=== PATIENT | male | born 1980 | race Hispanic/Latino ===

== ENCOUNTER 2021-03-24 22:06 | Inpatient (IN) | payer SELFPAY ==
[~2021-03-24] VITALS: Ht 165.1 cm; Wt 104.9 kg
[2021-03-24] MEDS ORDERED: DEXAMETHASONE SOD PHOS 10 MG/1 ML VIAL IV ONE (22:30)
[2021-03-24] MEDS ORDERED: ALBUTEROL/IPRATROPIUM 3 ML NEB NEB ONE (22:30)
[2021-03-24 22:33] LABS: BASOPHILS % 0.3 % (0.0-1.0); HEMATOCRIT 43.1 % (38.2-49.6); HEMOGLOBIN 14.6 g/dL (14.0-18.0); LYMPHOCYTES # (AUTO) 1.5 (1.0-3.2); MEAN CORPUSCULAR HEMOGLOBIN 28.5 pg (28-32); MEAN CORPUSCULAR HGB CONC 33.9 g/dL (31-35); MEAN CORPUSCULAR VOLUME 84.2 fL (81-99); MONOCYTES # (AUTO) 0.6 (0.2-0.8); MONOCYTES % 5.9 % (4.4-11.3); NEUTROPHILS # (AUTO) 8.2 (2.1-6.9); NEUTROPHILS % 78.2 % (38.7-80.0); PLATELET COUNT 392 x10e3/uL (140-360); RED BLOOD COUNT 5.12 x10e6/uL (4.3-5.7); RED CELL DISTRIBUTION WIDTH 13.3 % (11.7-14.4)
[2021-03-24] MEDS ORDERED: IPRATROPIUM BROMIDE 0.02% 2.5 ML NEB ONE (22:35)
[2021-03-24] MEDS ORDERED: ALBUTEROL SULF 0.083% NEB SOLN 3 ML NEB ONE (22:35)
[2021-03-24] MEDS ORDERED: KETOROLAC TROMETHAMINE 30 MG/ML VIAL IV STA (22:37)
[2021-03-24] MEDS ORDERED: GUAIFENESIN 600MG/DEXTROMETHORPHAN 30MG TABSR PO STA (22:37)
[2021-03-24] MEDS ORDERED: ACETAMINOPHEN 325 MG TAB PO ONE (22:45)
[2021-03-24 22:52] LABS: ALBUMIN 2.6 g/dL (3.5-5.0); ALBUMIN/GLOBULIN RATIO 0.5 (0.8-2.0); CALCIUM 8.3 mg/dL (8.4-10.2); CREATININE, SERUM 1.14 mg/dL (0.72-1.25)
[2021-03-24] MEDS ORDERED: IOPAMIDOL 370 MG/ML 200 ML INFUS..BTL INJ ONE (23:42)
[2021-03-24] MEDS ORDERED: SODIUM CHLORIDE 0.9% 50ML 50 ML ONE (23:43)
[2021-03-25] MEDS ORDERED: ONDANSETRON HCL INJ 2MG/ML 2ML 2 MG/ML VIAL IV PRN (00:30)
[2021-03-25] MEDS ORDERED: MORPHINE SULFATE INJ 4 MG/ML INJ 1ML IV PRN (00:30)
[2021-03-25] MEDS ORDERED: ZOLPIDEM TARTRATE 5 MG TAB PO PRN (08:00)
[2021-03-25] MEDS ORDERED: SODIUM CHLORIDE 0.9% 1000ML 1,000 ML IV ONE (08:15)
[2021-03-25] MEDS ORDERED: REMDESIVIR 200MG 200 MG IV ONE (09:00)
[2021-03-25] MEDS: ENOXAPARIN SOD INJ 40 MG/0.4 ML SYR SC SCH ×2 (10:12→23:00)
[2021-03-25] MEDS: ASCORBIC ACID 500 MG TAB PO SCH ×2 (10:12→17:00)
[2021-03-25] MEDS: ZINC SULFATE 220 MG CAP PO SCH (10:12)
[2021-03-25] MEDS ORDERED: SODIUM BICARBONATE 8.4% INJ 50 ML SYR ONE (12:42)
[2021-03-25] MEDS: CEFTRIAXONE 1 GM in SODIUM CHLORIDE 0.9% 50ML 50 ML IV SCH (13:38)
[2021-03-25] MEDS: DEXAMETHASONE SOD PHOS 10 MG/1 ML VIAL IV SCH (23:00)
[2021-03-26 06:18] LABS: BASOPHILS % 0.2 % (0.0-1.0); HEMATOCRIT 40.6 % (38.2-49.6); HEMOGLOBIN 13.7 g/dL (14.0-18.0); LYMPHOCYTES # (AUTO) 1.2 (1.0-3.2); LYMPHOCYTES % 7.3 % (18.0-39.1); MEAN CORPUSCULAR HEMOGLOBIN 28.5 pg (28-32); MEAN CORPUSCULAR HGB CONC 33.7 g/dL (31-35); MEAN CORPUSCULAR VOLUME 84.6 fL (81-99); MONOCYTES # (AUTO) 1.3 (0.2-0.8); MONOCYTES % 7.7 % (4.4-11.3); NEUTROPHILS # (AUTO) 14.2 (2.1-6.9); NEUTROPHILS % 83.3 % (38.7-80.0); PLATELET COUNT 443 x10e3/uL (140-360); RED CELL DISTRIBUTION WIDTH 13.3 % (11.7-14.4)
[2021-03-26 06:49] LABS: ALBUMIN 2.4 g/dL (3.5-5.0); ALBUMIN/GLOBULIN RATIO 0.5 (0.8-2.0); ANION GAP 12.2 mmol/L (8-16); CALCIUM 8.3 mg/dL (8.4-10.2); CREATININE, SERUM 0.74 mg/dL (0.72-1.25); POTASSIUM 4.2 mmol/L (3.5-5.1)
[2021-03-26] MEDS: ASCORBIC ACID 500 MG TAB PO SCH ×2 (09:00→17:51)
[2021-03-26] MEDS: ZINC SULFATE 220 MG CAP PO SCH (09:00)
[2021-03-26] MEDS: ENOXAPARIN SOD INJ 40 MG/0.4 ML SYR SC SCH ×2 (09:04→21:45)
[2021-03-26] MEDS: REMDESIVIR 100MG 100 MG IV SCH (09:04)
[2021-03-26] MEDS: CEFTRIAXONE 1 GM in SODIUM CHLORIDE 0.9% 50ML 50 ML IV SCH (09:04)
[2021-03-26] MEDS: DEXAMETHASONE SOD PHOS 10 MG/1 ML VIAL IV SCH (21:45)
[2021-03-26] MEDS ORDERED: ACETAMINOPHEN 1000 MG/100 ML IV PRN (23:45)
[2021-03-27] MEDS ORDERED: ACETAMINOPHEN 1000 MG/100 ML IV SCH
[2021-03-27 05:14] LABS: BASOPHILS % 0.1 % (0.0-1.0); HEMATOCRIT 41.4 % (38.2-49.6); HEMOGLOBIN 13.7 g/dL (14.0-18.0); LYMPHOCYTES % 7.2 % (18.0-39.1); MEAN CORPUSCULAR HEMOGLOBIN 28.1 pg (28-32); MEAN CORPUSCULAR HGB CONC 33.1 g/dL (31-35); MEAN CORPUSCULAR VOLUME 84.8 fL (81-99); MONOCYTES # (AUTO) 1.1 (0.2-0.8); MONOCYTES % 8.1 % (4.4-11.3); NEUTROPHILS # (AUTO) 11.5 (2.1-6.9); NEUTROPHILS % 82.9 % (38.7-80.0); PLATELET COUNT 474 x10e3/uL (140-360); RED BLOOD COUNT 4.88 x10e6/uL (4.3-5.7); RED CELL DISTRIBUTION WIDTH 13.2 % (11.7-14.4)
[2021-03-27 05:35] LABS: ALBUMIN 2.4 g/dL (3.5-5.0); ALBUMIN/GLOBULIN RATIO 0.5 (0.8-2.0); ANION GAP 15.5 mmol/L (8-16); CALCIUM 8.1 mg/dL (8.4-10.2); CREATININE, SERUM 0.72 mg/dL (0.72-1.25); POTASSIUM 4.5 mmol/L (3.5-5.1)
[2021-03-27] MEDS: CEFTRIAXONE 1 GM in SODIUM CHLORIDE 0.9% 50ML 50 ML IV SCH (09:01)
[2021-03-27] MEDS: ZINC SULFATE 220 MG CAP PO SCH (09:01)
[2021-03-27] MEDS: ENOXAPARIN SOD INJ 40 MG/0.4 ML SYR SC SCH ×2 (09:01→23:00)
[2021-03-27] MEDS: ASCORBIC ACID 500 MG TAB PO SCH ×2 (09:01→17:10)
[2021-03-27] MEDS: REMDESIVIR 100MG 100 MG IV SCH (09:36)
[2021-03-27] MEDS: DEXAMETHASONE SOD PHOS 10 MG/1 ML VIAL IV SCH (23:00)
[2021-03-28 06:12] LABS: BASOPHILS % 0.2 % (0.0-1.0); HEMATOCRIT 42.2 % (38.2-49.6); HEMOGLOBIN 14.4 g/dL (14.0-18.0); LYMPHOCYTES % 5.8 % (18.0-39.1); MEAN CORPUSCULAR HEMOGLOBIN 28.6 pg (28-32); MEAN CORPUSCULAR HGB CONC 34.1 g/dL (31-35); MEAN CORPUSCULAR VOLUME 83.9 fL (81-99); MONOCYTES # (AUTO) 0.8 (0.2-0.8); MONOCYTES % 4.9 % (4.4-11.3); NEUTROPHILS # (AUTO) 14.7 (2.1-6.9); NEUTROPHILS % 86.4 % (38.7-80.0); PLATELET COUNT 380 x10e3/uL (140-360); RED BLOOD COUNT 5.03 x10e6/uL (4.3-5.7); RED CELL DISTRIBUTION WIDTH 13.1 % (11.7-14.4)
[2021-03-28 06:16] LABS: ANION GAP 13.6 mmol/L (8-16); CALCIUM 8.4 mg/dL (8.4-10.2); CREATININE, SERUM 0.75 mg/dL (0.72-1.25); POTASSIUM 4.6 mmol/L (3.5-5.1)
[2021-03-28] MEDS: ENOXAPARIN SOD INJ 40 MG/0.4 ML SYR SC SCH ×2 (09:42→20:27)
[2021-03-28] MEDS: CEFTRIAXONE 1 GM in SODIUM CHLORIDE 0.9% 50ML 50 ML IV SCH (09:42)
[2021-03-28] MEDS: ASCORBIC ACID 500 MG TAB PO SCH ×2 (09:42→15:10)
[2021-03-28] MEDS: ZINC SULFATE 220 MG CAP PO SCH (09:42)
[2021-03-28] MEDS: REMDESIVIR 100MG 100 MG IV SCH (09:42)
[2021-03-28] MEDS: DEXAMETHASONE SOD PHOS 10 MG/1 ML VIAL IV SCH (20:27)
[2021-03-28] MEDS: ACETAMINOPHEN 325 MG TAB PO PRN (22:23)
[2021-03-29 06:07] LABS: BASOPHILS % 0.2 % (0.0-1.0); HEMATOCRIT 42.6 % (38.2-49.6); HEMOGLOBIN 14.4 g/dL (14.0-18.0); LYMPHOCYTES # (AUTO) 1.1 (1.0-3.2); LYMPHOCYTES % 5.5 % (18.0-39.1); MEAN CORPUSCULAR HEMOGLOBIN 28.5 pg (28-32); MEAN CORPUSCULAR HGB CONC 33.8 g/dL (31-35); MEAN CORPUSCULAR VOLUME 84.2 fL (81-99); MONOCYTES # (AUTO) 1.1 (0.2-0.8); MONOCYTES % 5.2 % (4.4-11.3); NEUTROPHILS # (AUTO) 17.5 (2.1-6.9); NEUTROPHILS % 86.2 % (38.7-80.0); PLATELET COUNT 469 x10e3/uL (140-360); RED BLOOD COUNT 5.06 x10e6/uL (4.3-5.7); RED CELL DISTRIBUTION WIDTH 13.2 % (11.7-14.4)
[2021-03-29 06:34] LABS: ALBUMIN 2.3 g/dL (3.5-5.0); ALBUMIN/GLOBULIN RATIO 0.5 (0.8-2.0); ANION GAP 12.7 mmol/L (8-16); CALCIUM 8.6 mg/dL (8.4-10.2); CREATININE, SERUM 0.73 mg/dL (0.72-1.25); POTASSIUM 4.7 mmol/L (3.5-5.1)
[2021-03-29] MEDS: ZINC SULFATE 220 MG CAP PO SCH (10:15)
[2021-03-29] MEDS: REMDESIVIR 100MG 100 MG IV SCH (10:15)
[2021-03-29] MEDS: CEFTRIAXONE 1 GM in SODIUM CHLORIDE 0.9% 50ML 50 ML IV SCH (10:15)
[2021-03-29] MEDS: ASCORBIC ACID 500 MG TAB PO SCH ×2 (10:15→18:15)
[2021-03-29] MEDS: ENOXAPARIN SOD INJ 40 MG/0.4 ML SYR SC SCH ×2 (10:15→23:30)
[2021-03-29] MEDS: DEXAMETHASONE SOD PHOS 10 MG/1 ML VIAL IV SCH (23:30)
[2021-03-30] MEDS: ACETAMINOPHEN 325 MG TAB PO PRN (00:54)
[2021-03-30] MEDS ORDERED: ACETAMINOPHEN 1000 MG/100 ML IV PRN (06:45)
[2021-03-30 07:18] LABS: BASOPHILS # (AUTO) 0.1 (0.0-0.1); BASOPHILS % 0.2 % (0.0-1.0); EOSINOPHILS # (AUTO) 0.2 (0.0-0.4); EOSINOPHILS % 0.9 % (0.0-6.0); HEMATOCRIT 45.2 % (38.2-49.6); HEMOGLOBIN 15.3 g/dL (14.0-18.0); LYMPHOCYTES # (AUTO) 1.6 (1.0-3.2); MEAN CORPUSCULAR HEMOGLOBIN 28.5 pg (28-32); MEAN CORPUSCULAR HGB CONC 33.8 g/dL (31-35); MEAN CORPUSCULAR VOLUME 84.3 fL (81-99); MONOCYTES # (AUTO) 1.4 (0.2-0.8); MONOCYTES % 6.7 % (4.4-11.3); NEUTROPHILS # (AUTO) 16.3 (2.1-6.9); NEUTROPHILS % 80.6 % (38.7-80.0); PLATELET COUNT 371 x10e3/uL (140-360); RED BLOOD COUNT 5.36 x10e6/uL (4.3-5.7); RED CELL DISTRIBUTION WIDTH 13.2 % (11.7-14.4)
[2021-03-30] MEDS: ASCORBIC ACID 500 MG TAB PO SCH ×2 (08:12→08:13)
[2021-03-30] MEDS: ZINC SULFATE 220 MG CAP PO SCH (08:13)
[2021-03-30] MEDS: ENOXAPARIN SOD INJ 40 MG/0.4 ML SYR SC SCH ×2 (08:39→22:35)
[2021-03-30] MEDS: DEXAMETHASONE SOD PHOS 10 MG/1 ML VIAL IV SCH (08:39)
[2021-03-30] MEDS: FENTANYL 2000MCG/NS 250 250 ML IV SCH (09:12)
[2021-03-30] MEDS: MIDAZOLAM HCL 5MG/ML 10ML VIAL 100 ML IV SCH ×3 (09:13→23:00)
[2021-03-30] MEDS ORDERED: ROCURONIUM BROMIDE 1,250 MG in SODIUM CHLORIDE 0.9% 250ML 125 ML IV PRN (10:45)
[2021-03-30] MEDS ORDERED: ROCURONIUM 1250MG/NS 250 250 ML ONE (11:02)
[2021-03-30 11:59] LABS: ABG HCO3 29 mmol/L (22-26); ABG PCO2 64 mmHg (35-45); ABG PH 7.27 (7.35-7.45); ABG PO2 117 mmHg (80-105); ABG TCO2 31
[2021-03-30] MEDS: PIPERACILLIN/TAZOBACTAM 3.375 GM in SODIUM CHLORIDE 0.9% 50ML 50 ML IV SCH ×2 (13:19→17:17)
[2021-03-30] MEDS ORDERED: SUCCINYLCHOLINE CHLORIDE 20 MG/ML 10ML VIAL ONE (13:42)
[2021-03-30] MEDS ORDERED: WATER STERILE 10 ML VIAL ONE (13:42)
[2021-03-30] MEDS ORDERED: MIDAZOLAM HCL 2 MG/2 ML VIAL ONE (13:42)
[2021-03-30] MEDS ORDERED: ETOMIDATE 2 MG/ML 10 ML INJ IV ONE (13:42)
[2021-03-30] MEDS ORDERED: VECURONIUM BROMIDE FOR INJ 20 MG VIAL ONE (13:42)
[2021-03-30] MEDS ORDERED: SODIUM CHLORIDE 0.9% 500ML 500 ML ONE (14:56)
[2021-03-30] MEDS ORDERED: SODIUM CHLORIDE 0.9% 500 ML IV ONE (15:30)
[2021-03-30] MEDS: NOREPINEPHRINE 8 MG/D5W 250 ML 250 ML IV SCH (15:45)
[2021-03-31] VITALS (18 sets, daily range): BP systolic 93–126; BP diastolic 57–82
[2021-03-31] MEDS: FENTANYL 2000MCG/NS 250 250 ML IV SCH ×3 (01:08→23:35)
[2021-03-31] MEDS: PIPERACILLIN/TAZOBACTAM 3.375 GM in SODIUM CHLORIDE 0.9% 50ML 50 ML IV SCH ×5 (01:30→23:35)
[2021-03-31] MEDS ORDERED: ACETAMINOPHEN 1000 MG/100 ML 100 ML IV ONE (01:33)
[2021-03-31 06:37] LABS: BASOPHILS # (AUTO) 0.1 (0.0-0.1); BASOPHILS % 0.3 % (0.0-1.0); HEMATOCRIT 43.3 % (38.2-49.6); LYMPHOCYTES # (AUTO) 1.1 (1.0-3.2); LYMPHOCYTES % 6.2 % (18.0-39.1); MEAN CORPUSCULAR HEMOGLOBIN 28.3 pg (28-32); MEAN CORPUSCULAR HGB CONC 32.3 g/dL (31-35); MEAN CORPUSCULAR VOLUME 87.5 fL (81-99); MONOCYTES # (AUTO) 1.4 (0.2-0.8); MONOCYTES % 7.7 % (4.4-11.3); NEUTROPHILS # (AUTO) 14.6 (2.1-6.9); NEUTROPHILS % 83.1 % (38.7-80.0); PLATELET COUNT 402 x10e3/uL (140-360); RED BLOOD COUNT 4.95 x10e6/uL (4.3-5.7); RED CELL DISTRIBUTION WIDTH 13.7 % (11.7-14.4)
[2021-03-31 07:02] LABS: ALBUMIN 2.1 g/dL (3.5-5.0); ALBUMIN/GLOBULIN RATIO 0.4 (0.8-2.0); ANION GAP 17.8 mmol/L (8-16); CALCIUM 8.5 mg/dL (8.4-10.2); CREATININE, SERUM 0.87 mg/dL (0.72-1.25); POTASSIUM 4.8 mmol/L (3.5-5.1)
[2021-03-31] MEDS: ACETAMINOPHEN 325 MG TAB PO PRN (07:31)
[2021-03-31] MEDS: ZINC SULFATE 220 MG CAP PO SCH (08:46)
[2021-03-31] MEDS: ENOXAPARIN SOD INJ 40 MG/0.4 ML SYR SC SCH ×2 (08:46→20:36)
[2021-03-31] MEDS: ASCORBIC ACID 500 MG TAB PO SCH ×2 (08:46→17:01)
[2021-03-31 09:33] LABS: ABG PCO2 53 mmHg (35-45); ABG PH 7.35 (7.35-7.45); ABG PO2 88 mmHg (80-105)
[2021-03-31 09:34] LABS: ABG HCO3 29 mmol/L (22-26); ABG TCO2 30
[2021-03-31] MEDS: NOREPINEPHRINE 8 MG/D5W 250 ML 250 ML IV SCH (16:44)
[2021-03-31] MEDS: MIDAZOLAM HCL 5MG/ML 10ML VIAL 100 ML IV SCH ×2 (16:45→20:35)
[2021-03-31] MEDS: DEXAMETHASONE SOD PHOS 10 MG/1 ML VIAL IV SCH (22:16)
[2021-04-01] VITALS (26 sets, daily range): BP systolic 88–128; BP diastolic 47–68
[2021-04-01] MEDS: MIDAZOLAM HCL 5MG/ML 10ML VIAL 100 ML IV SCH ×5 (02:12→22:00)
[2021-04-01] MEDS ORDERED: HEPARIN SOD/SOD CHLORIDE 1,000 ML ONE (02:38)
[2021-04-01] MEDS: PIPERACILLIN/TAZOBACTAM 3.375 GM in SODIUM CHLORIDE 0.9% 50ML 50 ML IV SCH ×4 (06:14→23:22)
[2021-04-01] MEDS: FENTANYL 2000MCG/NS 250 250 ML IV SCH ×3 (06:50→21:04)
[2021-04-01 06:52] LABS: BASOPHILS % 0.2 % (0.0-1.0); HEMATOCRIT 39.6 % (38.2-49.6); HEMOGLOBIN 12.7 g/dL (14.0-18.0); LYMPHOCYTES # (AUTO) 0.7 (1.0-3.2); LYMPHOCYTES % 6.2 % (18.0-39.1); MEAN CORPUSCULAR HEMOGLOBIN 28.3 pg (28-32); MEAN CORPUSCULAR HGB CONC 32.1 g/dL (31-35); MEAN CORPUSCULAR VOLUME 88.4 fL (81-99); MONOCYTES # (AUTO) 0.5 (0.2-0.8); MONOCYTES % 4.7 % (4.4-11.3); NEUTROPHILS # (AUTO) 9.6 (2.1-6.9); NEUTROPHILS % 87.2 % (38.7-80.0); PLATELET COUNT 386 x10e3/uL (140-360); RED BLOOD COUNT 4.48 x10e6/uL (4.3-5.7); RED CELL DISTRIBUTION WIDTH 13.7 % (11.7-14.4)
[2021-04-01 07:16] LABS: ALBUMIN 2.1 g/dL (3.5-5.0); ALBUMIN/GLOBULIN RATIO 0.5 (0.8-2.0); ANION GAP 15.9 mmol/L (8-16); CREATININE, SERUM 0.72 mg/dL (0.72-1.25); POTASSIUM 4.9 mmol/L (3.5-5.1)
[2021-04-01] MEDS: ZINC SULFATE 220 MG CAP PO SCH (08:41)
[2021-04-01] MEDS: ENOXAPARIN SOD INJ 40 MG/0.4 ML SYR SC SCH ×2 (08:41→21:33)
[2021-04-01] MEDS: ASCORBIC ACID 500 MG TAB PO SCH ×2 (08:41→16:08)
[2021-04-01 09:15] LABS: ABG HCO3 29 mmol/L (22-26); ABG PCO2 48 mmHg (35-45); ABG PH 7.38 (7.35-7.45); ABG PO2 87 mmHg (80-105); ABG TCO2 30
[2021-04-01] MEDS: NOREPINEPHRINE 8 MG/D5W 250 ML 250 ML IV SCH (15:45)
[2021-04-01] MEDS: DEXAMETHASONE SOD PHOS 10 MG/1 ML VIAL IV SCH (21:33)
[2021-04-01] MEDS: ACETAMINOPHEN 325 MG TAB PO PRN (23:23)
[2021-04-02] VITALS (27 sets, daily range): BP systolic 96–136; BP diastolic 50–67
[2021-04-02] MEDS: FENTANYL 2000MCG/NS 250 250 ML IV SCH ×2 (03:55→15:50)
[2021-04-02] MEDS: MIDAZOLAM HCL 5MG/ML 10ML VIAL 100 ML IV SCH ×3 (03:55→18:13)
[2021-04-02 05:31] LABS: BASOPHILS % 0.2 % (0.0-1.0); HEMATOCRIT 41.8 % (38.2-49.6); HEMOGLOBIN 13.6 g/dL (14.0-18.0); LYMPHOCYTES # (AUTO) 1.3 (1.0-3.2); LYMPHOCYTES % 10.4 % (18.0-39.1); MEAN CORPUSCULAR HEMOGLOBIN 28.3 pg (28-32); MEAN CORPUSCULAR HGB CONC 32.5 g/dL (31-35); MEAN CORPUSCULAR VOLUME 87.1 fL (81-99); MONOCYTES # (AUTO) 0.6 (0.2-0.8); MONOCYTES % 4.9 % (4.4-11.3); NEUTROPHILS % 82.3 % (38.7-80.0); PLATELET COUNT 428 x10e3/uL (140-360); RED CELL DISTRIBUTION WIDTH 13.5 % (11.7-14.4)
[2021-04-02 05:50] LABS: ALBUMIN 2.3 g/dL (3.5-5.0); ALBUMIN/GLOBULIN RATIO 0.5 (0.8-2.0); ANION GAP 15.1 mmol/L (8-16); CALCIUM 8.3 mg/dL (8.4-10.2); CREATININE, SERUM 0.67 mg/dL (0.72-1.25); POTASSIUM 4.1 mmol/L (3.5-5.1)
[2021-04-02] MEDS: PIPERACILLIN/TAZOBACTAM 3.375 GM in SODIUM CHLORIDE 0.9% 50ML 50 ML IV SCH ×3 (05:59→18:12)
[2021-04-02] MEDS ORDERED: CITRATE OF MAGNESIA 300ML BOTTLE PO ONE (08:45)
[2021-04-02] MEDS: DOCUSATE SODIUM LIQD 100 MG/10 ML UDC NG SCH (09:04)
[2021-04-02] MEDS: ZINC SULFATE 220 MG CAP PO SCH (09:04)
[2021-04-02] MEDS: ASCORBIC ACID 500 MG TAB PO SCH ×2 (09:04→17:46)
[2021-04-02] MEDS: ENOXAPARIN SOD INJ 40 MG/0.4 ML SYR SC SCH ×2 (09:24→21:53)
[2021-04-02 09:53] LABS: ABG HCO3 31 mmol/L (22-26); ABG PCO2 48 mmHg (35-45); ABG PH 7.41 (7.35-7.45); ABG PO2 97 mmHg (80-105); ABG TCO2 32
[2021-04-02] MEDS: ROCURONIUM 1250MG/NS 250 250 ML IV PRN (10:40)
[2021-04-02] MEDS: NOREPINEPHRINE 8 MG/D5W 250 ML 250 ML IV SCH (13:52)
[2021-04-02] MEDS: METOCLOPRAMIDE HCL 10 MG/2ML VIAL IV SCH ×2 (14:10→21:53)
[2021-04-02] MEDS: DEXAMETHASONE SOD PHOS 10 MG/1 ML VIAL IV SCH (21:53)
[2021-04-03] VITALS (27 sets, daily range): BP systolic 90–144; BP diastolic 47–81
[2021-04-03] MEDS: PIPERACILLIN/TAZOBACTAM 3.375 GM in SODIUM CHLORIDE 0.9% 50ML 50 ML IV SCH ×4 (00:19→17:57)
[2021-04-03] MEDS: MIDAZOLAM HCL 5MG/ML 10ML VIAL 100 ML IV SCH ×3 (00:21→17:10)
[2021-04-03] MEDS: FENTANYL 2000MCG/NS 250 250 ML IV SCH ×3 (00:21→20:58)
[2021-04-03 05:37] LABS: BASOPHILS % 0.1 % (0.0-1.0); EOSINOPHILS % 0.1 % (0.0-6.0); HEMATOCRIT 37.8 % (38.2-49.6); HEMOGLOBIN 12.5 g/dL (14.0-18.0); LYMPHOCYTES # (AUTO) 0.7 (1.0-3.2); LYMPHOCYTES % 6.8 % (18.0-39.1); MEAN CORPUSCULAR HEMOGLOBIN 28.7 pg (28-32); MEAN CORPUSCULAR HGB CONC 33.1 g/dL (31-35); MEAN CORPUSCULAR VOLUME 86.9 fL (81-99); MONOCYTES # (AUTO) 0.6 (0.2-0.8); MONOCYTES % 5.2 % (4.4-11.3); NEUTROPHILS # (AUTO) 9.2 (2.1-6.9); PLATELET COUNT 393 x10e3/uL (140-360); RED BLOOD COUNT 4.35 x10e6/uL (4.3-5.7); RED CELL DISTRIBUTION WIDTH 13.2 % (11.7-14.4)
[2021-04-03 06:15] LABS: ALBUMIN 2.1 g/dL (3.5-5.0); ALBUMIN/GLOBULIN RATIO 0.5 (0.8-2.0); ANION GAP 14.4 mmol/L (8-16); CALCIUM 7.7 mg/dL (8.4-10.2); CREATININE, SERUM 0.68 mg/dL (0.72-1.25); POTASSIUM 4.4 mmol/L (3.5-5.1)
[2021-04-03] MEDS: METOCLOPRAMIDE HCL 10 MG/2ML VIAL IV SCH ×3 (06:21→22:19)
[2021-04-03] MEDS: ENOXAPARIN SOD INJ 40 MG/0.4 ML SYR SC SCH ×2 (08:34→22:19)
[2021-04-03] MEDS: DOCUSATE SODIUM LIQD 100 MG/10 ML UDC NG SCH (08:34)
[2021-04-03] MEDS: ZINC SULFATE 220 MG CAP PO SCH (08:34)
[2021-04-03] MEDS: ASCORBIC ACID 500 MG TAB PO SCH ×2 (08:34→17:10)
[2021-04-03 09:06] LABS: ABG PCO2 46 mmHg (35-45); ABG PH 7.43 (7.35-7.45)
[2021-04-03 09:07] LABS: ABG HCO3 31 mmol/L (22-26); ABG PO2 83 mmHg (80-105); ABG TCO2 32
[2021-04-03] MEDS: ROCURONIUM 1250MG/NS 250 250 ML IV PRN (12:46)
[2021-04-03] MEDS: NOREPINEPHRINE 8 MG/D5W 250 ML 250 ML IV SCH (15:45)
[2021-04-03] MEDS: DEXAMETHASONE SOD PHOS 10 MG/1 ML VIAL IV SCH (22:19)
[2021-04-04] VITALS (17 sets, daily range): BP systolic 91–177; BP diastolic 45–97
[2021-04-04] MEDS: MIDAZOLAM HCL 5MG/ML 10ML VIAL 100 ML IV SCH ×5 (00:15→16:15)
[2021-04-04] MEDS: PIPERACILLIN/TAZOBACTAM 3.375 GM in SODIUM CHLORIDE 0.9% 50ML 50 ML IV SCH ×2 (00:15→05:51)
[2021-04-04] MEDS: NOREPINEPHRINE 8 MG/D5W 250 ML 250 ML IV SCH (05:15)
[2021-04-04] MEDS: FENTANYL 2000MCG/NS 250 250 ML IV SCH ×3 (05:15→19:26)
[2021-04-04] MEDS: METOCLOPRAMIDE HCL 10 MG/2ML VIAL IV SCH ×3 (05:51→20:49)
[2021-04-04 05:55] LABS: BASOPHILS % 0.2 % (0.0-1.0); HEMATOCRIT 39.2 % (38.2-49.6); LYMPHOCYTES # (AUTO) 0.8 (1.0-3.2); LYMPHOCYTES % 6.7 % (18.0-39.1); MEAN CORPUSCULAR HEMOGLOBIN 28.3 pg (28-32); MEAN CORPUSCULAR HGB CONC 33.2 g/dL (31-35); MEAN CORPUSCULAR VOLUME 85.2 fL (81-99); MONOCYTES # (AUTO) 0.6 (0.2-0.8); NEUTROPHILS # (AUTO) 10.3 (2.1-6.9); NEUTROPHILS % 84.5 % (38.7-80.0); PLATELET COUNT 446 x10e3/uL (140-360); RED CELL DISTRIBUTION WIDTH 13.1 % (11.7-14.4)
[2021-04-04 06:15] LABS: ALBUMIN 2.2 g/dL (3.5-5.0); ALBUMIN/GLOBULIN RATIO 0.6 (0.8-2.0); ANION GAP 13.3 mmol/L (8-16); CREATININE, SERUM 0.66 mg/dL (0.72-1.25); POTASSIUM 4.3 mmol/L (3.5-5.1)
[2021-04-04 09:03] LABS: ABG HCO3 30 mmol/L (22-26); ABG PCO2 44 mmHg (35-45); ABG PH 7.44 (7.35-7.45); ABG PO2 179 mmHg (80-105); ABG TCO2 31
[2021-04-04] MEDS: DOCUSATE SODIUM LIQD 100 MG/10 ML UDC NG SCH (09:46)
[2021-04-04] MEDS: ZINC SULFATE 220 MG CAP PO SCH (09:46)
[2021-04-04] MEDS: ASCORBIC ACID 500 MG TAB PO SCH ×2 (09:46→16:15)
[2021-04-04] MEDS: ENOXAPARIN SOD INJ 40 MG/0.4 ML SYR SC SCH ×2 (09:46→20:49)
[2021-04-04 14:57] LABS: ABG HCO3 21 mmol/L (22-26); ABG PCO2 30 mmHg (35-45); ABG PH 7.46 (7.35-7.45); ABG PO2 78 mmHg (80-105); ABG TCO2 22
[2021-04-04] MEDS: ROCURONIUM 1250MG/NS 250 250 ML IV PRN (15:40)
[2021-04-05] VITALS (25 sets, daily range): BP systolic 78–163; BP diastolic 43–86
[2021-04-05 04:48] LABS: BASOPHILS # (AUTO) 0.1 (0.0-0.1); BASOPHILS % 0.3 % (0.0-1.0); EOSINOPHILS # (AUTO) 0.2 (0.0-0.4); EOSINOPHILS % 1.1 % (0.0-6.0); HEMATOCRIT 37.8 % (38.2-49.6); HEMOGLOBIN 12.4 g/dL (14.0-18.0); LYMPHOCYTES # (AUTO) 2.3 (1.0-3.2); LYMPHOCYTES % 14.7 % (18.0-39.1); MEAN CORPUSCULAR HEMOGLOBIN 28.5 pg (28-32); MEAN CORPUSCULAR HGB CONC 32.8 g/dL (31-35); MEAN CORPUSCULAR VOLUME 86.9 fL (81-99); MONOCYTES # (AUTO) 1.4 (0.2-0.8); MONOCYTES % 8.7 % (4.4-11.3); NEUTROPHILS % 69.4 % (38.7-80.0); PLATELET COUNT 449 x10e3/uL (140-360); RED BLOOD COUNT 4.35 x10e6/uL (4.3-5.7); RED CELL DISTRIBUTION WIDTH 13.3 % (11.7-14.4)
[2021-04-05 05:15] LABS: ALBUMIN 2.1 g/dL (3.5-5.0); ALBUMIN/GLOBULIN RATIO 0.5 (0.8-2.0); ANION GAP 12.5 mmol/L (8-16); CALCIUM 7.7 mg/dL (8.4-10.2); CREATININE, SERUM 0.64 mg/dL (0.72-1.25); POTASSIUM 3.5 mmol/L (3.5-5.1)
[2021-04-05] MEDS: METOCLOPRAMIDE HCL 10 MG/2ML VIAL IV SCH ×3 (05:37→21:16)
[2021-04-05 07:16] LABS: ABG HCO3 30 mmol/L (22-26); ABG PCO2 51 mmHg (35-45); ABG PH 7.38 (7.35-7.45); ABG PO2 73 mmHg (80-105)
[2021-04-05 07:17] LABS: ABG TCO2 32
[2021-04-05] MEDS: DOCUSATE SODIUM LIQD 100 MG/10 ML UDC NG SCH (08:55)
[2021-04-05] MEDS: MIDAZOLAM HCL 5MG/ML 10ML VIAL 100 ML IV SCH ×3 (08:56→20:38)
[2021-04-05] MEDS: ZINC SULFATE 220 MG CAP PO SCH (08:56)
[2021-04-05] MEDS: ASCORBIC ACID 500 MG TAB PO SCH ×2 (08:56→16:39)
[2021-04-05] MEDS: ENOXAPARIN SOD INJ 40 MG/0.4 ML SYR SC SCH ×2 (08:56→21:15)
[2021-04-05] MEDS: FENTANYL 2000MCG/NS 250 250 ML IV SCH ×3 (09:00→20:38)
[2021-04-05] MEDS: PROPOFOL IV EMULSION 10MG/ML 100 ML IV SCH ×3 (10:58→21:15)
[2021-04-05] MEDS: NOREPINEPHRINE 8 MG/D5W 250 ML 250 ML IV SCH (15:12)
[2021-04-05] MEDS: ROCURONIUM 1250MG/NS 250 250 ML IV PRN (15:13)
[2021-04-06] VITALS (24 sets, daily range): BP systolic 89–115; BP diastolic 47–59
[2021-04-06] MEDS: MIDAZOLAM HCL 5MG/ML 10ML VIAL 100 ML IV SCH ×4 (01:39→16:17)
[2021-04-06] MEDS: PROPOFOL IV EMULSION 10MG/ML 100 ML IV SCH ×3 (03:00→13:49)
[2021-04-06] MEDS: FENTANYL 2000MCG/NS 250 250 ML IV SCH ×4 (03:17→23:19)
[2021-04-06 05:25] LABS: BASOPHILS % 0.2 % (0.0-1.0); EOSINOPHILS # (AUTO) 0.2 (0.0-0.4); EOSINOPHILS % 1.1 % (0.0-6.0); HEMATOCRIT 40.8 % (38.2-49.6); HEMOGLOBIN 13.2 g/dL (14.0-18.0); LYMPHOCYTES # (AUTO) 1.7 (1.0-3.2); LYMPHOCYTES % 10.1 % (18.0-39.1); MEAN CORPUSCULAR HEMOGLOBIN 28.5 pg (28-32); MEAN CORPUSCULAR HGB CONC 32.4 g/dL (31-35); MEAN CORPUSCULAR VOLUME 88.1 fL (81-99); MONOCYTES # (AUTO) 1.3 (0.2-0.8); NEUTROPHILS # (AUTO) 12.6 (2.1-6.9); NEUTROPHILS % 76.4 % (38.7-80.0); PLATELET COUNT 388 x10e3/uL (140-360); RED BLOOD COUNT 4.63 x10e6/uL (4.3-5.7); RED CELL DISTRIBUTION WIDTH 13.6 % (11.7-14.4)
[2021-04-06] MEDS: METOCLOPRAMIDE HCL 10 MG/2ML VIAL IV SCH ×3 (05:28→22:09)
[2021-04-06] MEDS: ACETAMINOPHEN 325 MG TAB PO PRN (05:29)
[2021-04-06 05:50] LABS: ALBUMIN 2.1 g/dL (3.5-5.0); ALBUMIN/GLOBULIN RATIO 0.5 (0.8-2.0); ANION GAP 11.6 mmol/L (8-16); CALCIUM 8.1 mg/dL (8.4-10.2); CREATININE, SERUM 0.57 mg/dL (0.72-1.25); POTASSIUM 3.6 mmol/L (3.5-5.1)
[2021-04-06 07:53] LABS: ABG HCO3 32 mmol/L (22-26); ABG PCO2 63 mmHg (35-45); ABG PH 7.31 (7.35-7.45); ABG PO2 74 mmHg (80-105); ABG TCO2 34
[2021-04-06] MEDS: MEROPENEM 1 GM in SODIUM CHLORIDE 0.9% 100 ML IV SCH ×2 (09:24→17:03)
[2021-04-06] MEDS: DOCUSATE SODIUM LIQD 100 MG/10 ML UDC NG SCH (09:25)
[2021-04-06] MEDS: ZINC SULFATE 220 MG CAP PO SCH (09:25)
[2021-04-06] MEDS: ASCORBIC ACID 500 MG TAB PO SCH ×2 (09:25→17:03)
[2021-04-06] MEDS: ENOXAPARIN SOD INJ 40 MG/0.4 ML SYR SC SCH ×2 (09:25→21:55)
[2021-04-06 11:02] LABS: ABG HCO3 32 mmol/L (22-26); ABG PCO2 55 mmHg (35-45); ABG PH 7.37 (7.35-7.45); ABG PO2 62 mmHg (80-105); ABG TCO2 33
[2021-04-06] MEDS: ROCURONIUM 1250MG/NS 250 250 ML IV PRN (18:20)
[2021-04-07] VITALS (17 sets, daily range): BP systolic 82–128; BP diastolic 44–72
[2021-04-07] MEDS: ACETAMINOPHEN 325 MG TAB PO PRN ×2 (00:28→22:45)
[2021-04-07] MEDS ORDERED: NOREPINEPHRINE 8 MG/D5W 250 ML 250 ML ONE (01:26)
[2021-04-07] MEDS: NOREPINEPHRINE 8 MG/D5W 250 ML 250 ML IV SCH (01:40)
[2021-04-07] MEDS ORDERED: ACETAMINOPHEN 1000 MG/100 ML IV STA (02:11)
[2021-04-07] MEDS ORDERED: FUROSEMIDE INJ 10 MG/ML 4 ML VIAL IV ONE (02:15)
[2021-04-07] MEDS: MEROPENEM 1 GM in SODIUM CHLORIDE 0.9% 100 ML IV SCH ×3 (02:18→17:15)
[2021-04-07 05:03] LABS: BASOPHILS % 0.2 % (0.0-1.0); EOSINOPHILS # (AUTO) 0.3 (0.0-0.4); EOSINOPHILS % 1.5 % (0.0-6.0); HEMATOCRIT 41.9 % (38.2-49.6); HEMOGLOBIN 13.6 g/dL (14.0-18.0); LYMPHOCYTES # (AUTO) 1.3 (1.0-3.2); LYMPHOCYTES % 8.1 % (18.0-39.1); MEAN CORPUSCULAR HEMOGLOBIN 28.3 pg (28-32); MEAN CORPUSCULAR HGB CONC 32.5 g/dL (31-35); MEAN CORPUSCULAR VOLUME 87.1 fL (81-99); MONOCYTES # (AUTO) 1.3 (0.2-0.8); MONOCYTES % 7.6 % (4.4-11.3); NEUTROPHILS # (AUTO) 12.7 (2.1-6.9); NEUTROPHILS % 77.2 % (38.7-80.0); PLATELET COUNT 387 x10e3/uL (140-360); RED BLOOD COUNT 4.81 x10e6/uL (4.3-5.7); RED CELL DISTRIBUTION WIDTH 13.5 % (11.7-14.4)
[2021-04-07 05:31] LABS: ALBUMIN/GLOBULIN RATIO 0.5 (0.8-2.0); ANION GAP 13.2 mmol/L (8-16); CALCIUM 8.5 mg/dL (8.4-10.2); CREATININE, SERUM 0.58 mg/dL (0.72-1.25); POTASSIUM 3.2 mmol/L (3.5-5.1)
[2021-04-07] MEDS: FENTANYL 2000MCG/NS 250 250 ML IV SCH ×3 (06:06→20:00)
[2021-04-07] MEDS: MIDAZOLAM HCL 5MG/ML 10ML VIAL 100 ML IV SCH ×3 (06:06→22:45)
[2021-04-07] MEDS: METOCLOPRAMIDE HCL 10 MG/2ML VIAL IV SCH ×3 (06:07→22:00)
[2021-04-07] MEDS: PROPOFOL IV EMULSION 10MG/ML 100 ML IV SCH ×3 (06:07→13:17)
[2021-04-07] MEDS ORDERED: KCL 20 MEQ PACKET/ ORAL SOLN NG ONE (08:45)
[2021-04-07 09:04] LABS: LYMPHOCYTES % (MANUAL) 4 % (19-48); MONOCYTES % (MANUAL) 2 % (3.4-9.0); NEUTROPHILS % (MANUAL) 84 % (40-74)
[2021-04-07 09:05] LABS: PLATELET ESTIMATE ADEQUATE; PLATELET MORPHOLOGY COMMENT NORMAL; RBC MORPHOLOGY COMMENT NORMAL
[2021-04-07 09:10] LABS: ABG HCO3 38 mmol/L (22-26); ABG PCO2 63 mmHg (35-45); ABG PH 7.39 (7.35-7.45); ABG PO2 58 mmHg (80-105); ABG TCO2 40
[2021-04-07] MEDS: DOCUSATE SODIUM LIQD 100 MG/10 ML UDC NG SCH (10:23)
[2021-04-07] MEDS: ASCORBIC ACID 500 MG TAB PO SCH ×2 (10:23→17:15)
[2021-04-07] MEDS: ENOXAPARIN SOD INJ 40 MG/0.4 ML SYR SC SCH ×2 (10:23→20:53)
[2021-04-07] MEDS: ZINC SULFATE 220 MG CAP PO SCH (10:23)
[2021-04-08] VITALS (18 sets, daily range): BP systolic 92–124; BP diastolic 49–81
[2021-04-08] MEDS: NOREPINEPHRINE 8 MG/D5W 250 ML 250 ML IV SCH (01:30)
[2021-04-08] MEDS: MEROPENEM 1 GM in SODIUM CHLORIDE 0.9% 100 ML IV SCH ×3 (02:30→16:21)
[2021-04-08 04:48] LABS: BASOPHILS # (AUTO) 0.1 (0.0-0.1); BASOPHILS % 0.4 % (0.0-1.0); EOSINOPHILS # (AUTO) 0.2 (0.0-0.4); EOSINOPHILS % 1.4 % (0.0-6.0); HEMATOCRIT 39.1 % (38.2-49.6); HEMOGLOBIN 12.3 g/dL (14.0-18.0); LYMPHOCYTES # (AUTO) 1.6 (1.0-3.2); LYMPHOCYTES % 9.3 % (18.0-39.1); MEAN CORPUSCULAR HEMOGLOBIN 28.6 pg (28-32); MEAN CORPUSCULAR HGB CONC 31.5 g/dL (31-35); MEAN CORPUSCULAR VOLUME 90.9 fL (81-99); MONOCYTES # (AUTO) 1.5 (0.2-0.8); MONOCYTES % 8.9 % (4.4-11.3); NEUTROPHILS # (AUTO) 13.2 (2.1-6.9); NEUTROPHILS % 77.4 % (38.7-80.0); PLATELET COUNT 386 x10e3/uL (140-360); RED CELL DISTRIBUTION WIDTH 13.9 % (11.7-14.4)
[2021-04-08 05:09] LABS: ALBUMIN 1.8 g/dL (3.5-5.0); ALBUMIN/GLOBULIN RATIO 0.4 (0.8-2.0); ANION GAP 11.3 mmol/L (8-16); CALCIUM 8.6 mg/dL (8.4-10.2); CREATININE, SERUM 0.59 mg/dL (0.72-1.25); POTASSIUM 4.3 mmol/L (3.5-5.1)
[2021-04-08] MEDS: METOCLOPRAMIDE HCL 10 MG/2ML VIAL IV SCH ×3 (05:39→21:44)
[2021-04-08] MEDS: PROPOFOL IV EMULSION 10MG/ML 100 ML IV SCH ×3 (08:08→18:26)
[2021-04-08 08:15] LABS: ABG PH 7.28 (7.35-7.45)
[2021-04-08 08:16] LABS: ABG PCO2 87 mmHg (35-45); ABG PO2 74 mmHg (80-105)
[2021-04-08 08:17] LABS: ABG HCO3 40 mmol/L (22-26); ABG TCO2 43
[2021-04-08] MEDS: MIDAZOLAM HCL 5MG/ML 10ML VIAL 100 ML IV SCH ×3 (08:35→18:33)
[2021-04-08] MEDS: ZINC SULFATE 220 MG CAP PO SCH (08:49)
[2021-04-08] MEDS: ASCORBIC ACID 500 MG TAB PO SCH ×2 (08:49→16:21)
[2021-04-08] MEDS: ENOXAPARIN SOD INJ 40 MG/0.4 ML SYR SC SCH ×2 (08:49→21:44)
[2021-04-08] MEDS: DOCUSATE SODIUM LIQD 100 MG/10 ML UDC NG SCH (08:49)
[2021-04-08] MEDS: FENTANYL 2000MCG/NS 250 250 ML IV SCH ×2 (09:40→16:50)
[2021-04-08] MEDS: ALBUMIN 25% 25GM 100ML 0.25 GM/ML BTL IV SCH ×2 (10:30→18:07)
[2021-04-08] MEDS: FUROSEMIDE INJ 10 MG/ML 4 ML VIAL IV SCH ×2 (10:30→21:43)
[2021-04-09] VITALS (25 sets, daily range): BP systolic 78–132; BP diastolic 42–67
[2021-04-09] MEDS: FENTANYL 2000MCG/NS 250 250 ML IV SCH ×4 (00:20→20:48)
[2021-04-09] MEDS: MIDAZOLAM HCL 5MG/ML 10ML VIAL 100 ML IV SCH ×5 (00:20→20:47)
[2021-04-09] MEDS: MEROPENEM 1 GM in SODIUM CHLORIDE 0.9% 100 ML IV SCH ×3 (00:46→17:01)
[2021-04-09] MEDS: PROPOFOL IV EMULSION 10MG/ML 100 ML IV SCH ×3 (00:47→12:16)
[2021-04-09] MEDS: NOREPINEPHRINE 8 MG/D5W 250 ML 250 ML IV SCH (00:47)
[2021-04-09] MEDS: ROCURONIUM 1250MG/NS 250 250 ML IV PRN (00:48)
[2021-04-09] MEDS: ALBUMIN 25% 25GM 100ML 0.25 GM/ML BTL IV SCH (02:15)
[2021-04-09] MEDS: METOCLOPRAMIDE HCL 10 MG/2ML VIAL IV SCH ×3 (06:42→22:08)
[2021-04-09 09:07] LABS: BASOPHILS % 0.3 % (0.0-1.0); EOSINOPHILS # (AUTO) 0.2 (0.0-0.4); EOSINOPHILS % 1.1 % (0.0-6.0); HEMOGLOBIN 10.7 g/dL (14.0-18.0); LYMPHOCYTES % 6.4 % (18.0-39.1); MEAN CORPUSCULAR HEMOGLOBIN 28.2 pg (28-32); MEAN CORPUSCULAR HGB CONC 31.5 g/dL (31-35); MEAN CORPUSCULAR VOLUME 89.7 fL (81-99); MONOCYTES # (AUTO) 1.4 (0.2-0.8); MONOCYTES % 9.1 % (4.4-11.3); NEUTROPHILS # (AUTO) 12.8 (2.1-6.9); NEUTROPHILS % 81.4 % (38.7-80.0); PLATELET COUNT 332 x10e3/uL (140-360); RED BLOOD COUNT 3.79 x10e6/uL (4.3-5.7); RED CELL DISTRIBUTION WIDTH 13.7 % (11.7-14.4)
[2021-04-09] MEDS: DOCUSATE SODIUM LIQD 100 MG/10 ML UDC NG SCH (09:23)
[2021-04-09] MEDS: ACETAZOLAMIDE SODIUM 500 MG/VIAL IV SCH ×2 (09:23→22:07)
[2021-04-09] MEDS: ASCORBIC ACID 500 MG TAB PO SCH ×2 (09:23→17:01)
[2021-04-09] MEDS: ZINC SULFATE 220 MG CAP PO SCH (09:23)
[2021-04-09] MEDS: ENOXAPARIN SOD INJ 40 MG/0.4 ML SYR SC SCH (09:23)
[2021-04-09 09:35] LABS: ABG HCO3 45 mmol/L (22-26); ABG PCO2 72 mmHg (35-45); ABG PO2 54 mmHg (80-105); ABG TCO2 47
[2021-04-09 09:41] LABS: ALBUMIN 2.8 g/dL (3.5-5.0); ALBUMIN/GLOBULIN RATIO 0.8 (0.8-2.0); ANION GAP 11.6 mmol/L (8-16); CALCIUM 8.8 mg/dL (8.4-10.2); CREATININE, SERUM 0.51 mg/dL (0.72-1.25); POTASSIUM 3.6 mmol/L (3.5-5.1)
[2021-04-09] MEDS ORDERED: VANCOMYCIN HCL 1GM/NS 250 ML BAG IV ONE (18:30)
[2021-04-09] MEDS ORDERED: SODIUM BICARBONATE 8.4% SYRING 50 ML ONE (18:33)
[2021-04-09 18:38] LABS: ABG PCO2 > 130 mmHg (35-45); ABG PH 6.88 (7.35-7.45); ABG PO2 66 mmHg (80-105)
[2021-04-09] MEDS ORDERED: Vancomycin IV 1 GM in SODIUM CHLORIDE 0.9% 250ML 250 ML IV ONE (19:30)
[2021-04-09 19:49] LABS: ABG HCO3 41 mmol/L (22-26); ABG PCO2 105 mmHg (35-45); ABG PO2 59 mmHg (80-105); ABG TCO2 44
[2021-04-09] MEDS: ENOXAPARIN INJ 80 MG/0.8 ML SYR SC SCH (22:07)
[2021-04-09] MEDS ORDERED: HEPARIN SOD/SOD CHLORIDE 1,000 ML ONE (22:10)
[2021-04-10] VITALS (26 sets, daily range): BP systolic 101–133; BP diastolic 5–64
[2021-04-10] MEDS: MEROPENEM 1 GM in SODIUM CHLORIDE 0.9% 100 ML IV SCH ×3 (01:07→16:43)
[2021-04-10] MEDS: FENTANYL 2000MCG/NS 250 250 ML IV SCH ×4 (01:40→23:56)
[2021-04-10] MEDS: MIDAZOLAM HCL 5MG/ML 10ML VIAL 100 ML IV SCH ×5 (01:40→22:09)
[2021-04-10 05:00] LABS: BASOPHILS # (AUTO) 0.1 (0.0-0.1); BASOPHILS % 0.3 % (0.0-1.0); EOSINOPHILS # (AUTO) 0.2 (0.0-0.4); HEMATOCRIT 36.3 % (38.2-49.6); HEMOGLOBIN 11.1 g/dL (14.0-18.0); LYMPHOCYTES # (AUTO) 1.1 (1.0-3.2); MEAN CORPUSCULAR HEMOGLOBIN 28.3 pg (28-32); MEAN CORPUSCULAR HGB CONC 30.6 g/dL (31-35); MEAN CORPUSCULAR VOLUME 92.6 fL (81-99); MONOCYTES # (AUTO) 2.2 (0.2-0.8); MONOCYTES % 12.2 % (4.4-11.3); NEUTROPHILS # (AUTO) 14.1 (2.1-6.9); NEUTROPHILS % 78.5 % (38.7-80.0); PLATELET COUNT 369 x10e3/uL (140-360); RED BLOOD COUNT 3.92 x10e6/uL (4.3-5.7)
[2021-04-10 05:20] LABS: ALBUMIN 2.7 g/dL (3.5-5.0); ALBUMIN/GLOBULIN RATIO 0.7 (0.8-2.0); ANION GAP 14.7 mmol/L (8-16); CALCIUM 8.7 mg/dL (8.4-10.2); CREATININE, SERUM 0.63 mg/dL (0.72-1.25); POTASSIUM 3.7 mmol/L (3.5-5.1)
[2021-04-10] MEDS: METOCLOPRAMIDE HCL 10 MG/2ML VIAL IV SCH ×3 (06:00→20:50)
[2021-04-10] MEDS: ENOXAPARIN INJ 80 MG/0.8 ML SYR SC SCH ×2 (08:12→20:50)
[2021-04-10] MEDS: DOCUSATE SODIUM LIQD 100 MG/10 ML UDC NG SCH (08:12)
[2021-04-10] MEDS: ASCORBIC ACID 500 MG TAB PO SCH ×2 (08:12→16:43)
[2021-04-10] MEDS: ZINC SULFATE 220 MG CAP PO SCH (08:12)
[2021-04-10] MEDS: ROCURONIUM 1250MG/NS 250 250 ML IV PRN (08:14)
[2021-04-10 08:39] LABS: ABG HCO3 39 mmol/L (22-26); ABG PCO2 73 mmHg (35-45); ABG PH 7.33 (7.35-7.45); ABG PO2 71 mmHg (80-105); ABG TCO2 41
[2021-04-10] MEDS: NOREPINEPHRINE 8 MG/D5W 250 ML 250 ML IV SCH (09:00)
[2021-04-10] MEDS: PROPOFOL IV EMULSION 10MG/ML 100 ML IV SCH ×3 (10:05→21:36)
[2021-04-11] VITALS (24 sets, daily range): BP systolic 94–170; BP diastolic 50–92
[2021-04-11] MEDS: MEROPENEM 1 GM in SODIUM CHLORIDE 0.9% 100 ML IV SCH ×2 (01:32→08:52)
[2021-04-11] MEDS: PROPOFOL IV EMULSION 10MG/ML 100 ML IV SCH ×3 (02:05→23:28)
[2021-04-11] MEDS: MIDAZOLAM HCL 5MG/ML 10ML VIAL 100 ML IV SCH ×6 (02:43→18:46)
[2021-04-11 05:39] LABS: BASOPHILS # (AUTO) 0.1 (0.0-0.1); BASOPHILS % 0.3 % (0.0-1.0); EOSINOPHILS # (AUTO) 0.2 (0.0-0.4); EOSINOPHILS % 1.2 % (0.0-6.0); HEMATOCRIT 37.1 % (38.2-49.6); HEMOGLOBIN 11.6 g/dL (14.0-18.0); LYMPHOCYTES % 5.3 % (18.0-39.1); MEAN CORPUSCULAR HEMOGLOBIN 28.8 pg (28-32); MEAN CORPUSCULAR HGB CONC 31.3 g/dL (31-35); MEAN CORPUSCULAR VOLUME 92.1 fL (81-99); MONOCYTES # (AUTO) 1.2 (0.2-0.8); MONOCYTES % 6.8 % (4.4-11.3); NEUTROPHILS # (AUTO) 15.3 (2.1-6.9); NEUTROPHILS % 84.7 % (38.7-80.0); PLATELET COUNT 315 x10e3/uL (140-360); RED BLOOD COUNT 4.03 x10e6/uL (4.3-5.7)
[2021-04-11] MEDS: METOCLOPRAMIDE HCL 10 MG/2ML VIAL IV SCH ×3 (05:54→21:55)
[2021-04-11 06:09] LABS: ALBUMIN 2.4 g/dL (3.5-5.0); ALBUMIN/GLOBULIN RATIO 0.6 (0.8-2.0); ANION GAP 12.8 mmol/L (8-16); CALCIUM 8.6 mg/dL (8.4-10.2); CREATININE, SERUM 0.56 mg/dL (0.72-1.25); POTASSIUM 3.8 mmol/L (3.5-5.1)
[2021-04-11] MEDS: FENTANYL 2000MCG/NS 250 250 ML IV SCH ×4 (06:48→21:12)
[2021-04-11] MEDS: ASCORBIC ACID 500 MG TAB PO SCH ×2 (08:52→18:47)
[2021-04-11] MEDS: ENOXAPARIN INJ 80 MG/0.8 ML SYR SC SCH ×2 (08:52→21:55)
[2021-04-11] MEDS: ZINC SULFATE 220 MG CAP PO SCH (08:52)
[2021-04-11] MEDS: DOCUSATE SODIUM LIQD 100 MG/10 ML UDC NG SCH (08:52)
[2021-04-11 09:42] LABS: ABG HCO3 41 mmol/L (22-26); ABG PCO2 122 mmHg (35-45); ABG PH 7.14 (7.35-7.45); ABG PO2 97 mmHg (80-105); ABG TCO2 45
[2021-04-11] MEDS: ROCURONIUM 1250MG/NS 250 250 ML IV PRN (11:14)
[2021-04-11] MEDS: FUROSEMIDE INJ 10 MG/ML 4 ML VIAL IV SCH ×2 (12:09→21:55)
[2021-04-11] MEDS ORDERED: SODIUM BICARBONATE 8.4% SYRING 150 ML ONE (16:11)
[2021-04-11] MEDS: NOREPINEPHRINE 8 MG/D5W 250 ML 250 ML IV SCH (16:28)
[2021-04-11 18:21] LABS: ABG PCO2 > 130 mmHg (35-45); ABG PH 7.02 (7.35-7.45); ABG PO2 81 mmHg (80-105)
[2021-04-11 18:23] LABS: ABG HCO3 46 mmol/L (22-26); ABG PCO2 92 mmHg (35-45); ABG PO2 65 mmHg (80-105); ABG TCO2 48
[2021-04-11] MEDS: ACETAMINOPHEN 325 MG TAB PO PRN (23:29)
[2021-04-12] VITALS (22 sets, daily range): BP systolic 97–132; BP diastolic 50–81
[2021-04-12] MEDS: MIDAZOLAM HCL 5MG/ML 10ML VIAL 100 ML IV SCH ×3 (00:20→11:12)
[2021-04-12] MEDS: FENTANYL 2000MCG/NS 250 250 ML IV SCH ×2 (04:25→11:11)
[2021-04-12] MEDS: METOCLOPRAMIDE HCL 10 MG/2ML VIAL IV SCH ×3 (05:26→22:04)
[2021-04-12] MEDS: PROPOFOL IV EMULSION 10MG/ML 100 ML IV SCH ×2 (05:27→12:11)
[2021-04-12 05:42] LABS: BASOPHILS # (AUTO) 0.1 (0.0-0.1); BASOPHILS % 0.3 % (0.0-1.0); EOSINOPHILS # (AUTO) 0.1 (0.0-0.4); EOSINOPHILS % 0.8 % (0.0-6.0); HEMATOCRIT 32.8 % (38.2-49.6); HEMOGLOBIN 10.4 g/dL (14.0-18.0); LYMPHOCYTES # (AUTO) 1.2 (1.0-3.2); LYMPHOCYTES % 8.3 % (18.0-39.1); MEAN CORPUSCULAR HEMOGLOBIN 28.6 pg (28-32); MEAN CORPUSCULAR HGB CONC 31.7 g/dL (31-35); MEAN CORPUSCULAR VOLUME 90.1 fL (81-99); MONOCYTES # (AUTO) 1.5 (0.2-0.8); MONOCYTES % 10.4 % (4.4-11.3); NEUTROPHILS # (AUTO) 11.5 (2.1-6.9); NEUTROPHILS % 78.4 % (38.7-80.0); PLATELET COUNT 319 x10e3/uL (140-360); RED BLOOD COUNT 3.64 x10e6/uL (4.3-5.7); RED CELL DISTRIBUTION WIDTH 13.9 % (11.7-14.4)
[2021-04-12 06:40] LABS: ALBUMIN 2.4 g/dL (3.5-5.0); ALBUMIN/GLOBULIN RATIO 0.6 (0.8-2.0); ANION GAP 14.9 mmol/L (8-16); CALCIUM 8.8 mg/dL (8.4-10.2); CREATININE, SERUM 0.63 mg/dL (0.72-1.25)
[2021-04-12 06:44] LABS: POTASSIUM 2.9 mmol/L (3.5-5.1)
[2021-04-12] MEDS: NOREPINEPHRINE 8 MG/D5W 250 ML 250 ML IV SCH (07:48)
[2021-04-12] MEDS: DOCUSATE SODIUM LIQD 100 MG/10 ML UDC NG SCH (08:44)
[2021-04-12] MEDS: ASCORBIC ACID 500 MG TAB PO SCH ×2 (08:44→17:55)
[2021-04-12] MEDS: ZINC SULFATE 220 MG CAP PO SCH (08:44)
[2021-04-12] MEDS: FUROSEMIDE INJ 10 MG/ML 4 ML VIAL IV SCH ×2 (08:45→22:04)
[2021-04-12] MEDS: ENOXAPARIN INJ 80 MG/0.8 ML SYR SC SCH ×2 (08:45→22:04)
[2021-04-12 09:26] LABS: ABG HCO3 45 mmol/L (22-26); ABG PCO2 73 mmHg (35-45); ABG PO2 73 mmHg (80-105); ABG TCO2 47
[2021-04-12] MEDS ORDERED: POTASSIUM CHLORIDE 20MEQ/100ML 200 ML IV ONE (09:30)
[2021-04-12] MEDS ORDERED: DEXAMETHASONE SOD PHOS 10 MG/1 ML VIAL ONE (20:16)
[2021-04-12] MEDS ORDERED: HEPARIN SOD (PORCINE) 5,000 UNIT/ML VIAL ONE (20:16)
[2021-04-12] MEDS ORDERED: CALCIUM CARBONATE 500 MG CHEWABLE TABS ONE (20:16)
[2021-04-12] MEDS ORDERED: FUROSEMIDE INJ 10 MG/ML 4 ML VIAL ONE (20:21)
[2021-04-13] VITALS (24 sets, daily range): BP systolic 99–136; BP diastolic 48–76
[2021-04-13] MEDS: PROPOFOL IV EMULSION 10MG/ML 100 ML IV SCH ×4 (00:03→23:36)
[2021-04-13] MEDS: NOREPINEPHRINE 8 MG/D5W 250 ML 250 ML IV SCH (02:00)
[2021-04-13 03:44] LABS: ABG PH 7.22 (7.35-7.45)
[2021-04-13 03:45] LABS: ABG HCO3 48 mmol/L (22-26); ABG PCO2 115 mmHg (35-45); ABG PO2 53 mmHg (80-105); ABG TCO2 50
[2021-04-13] MEDS: METOCLOPRAMIDE HCL 10 MG/2ML VIAL IV SCH ×3 (06:00→21:23)
[2021-04-13] MEDS: MIDAZOLAM HCL 5MG/ML 10ML VIAL 100 ML IV SCH ×2 (06:50→18:05)
[2021-04-13 07:07] LABS: BASOPHILS # (AUTO) 0.1 (0.0-0.1); BASOPHILS % 0.3 % (0.0-1.0); EOSINOPHILS # (AUTO) 0.3 (0.0-0.4); HEMATOCRIT 36.1 % (38.2-49.6); HEMOGLOBIN 10.9 g/dL (14.0-18.0); LYMPHOCYTES # (AUTO) 0.8 (1.0-3.2); LYMPHOCYTES % 5.3 % (18.0-39.1); MEAN CORPUSCULAR HEMOGLOBIN 28.2 pg (28-32); MEAN CORPUSCULAR HGB CONC 30.2 g/dL (31-35); MEAN CORPUSCULAR VOLUME 93.3 fL (81-99); MONOCYTES # (AUTO) 1.2 (0.2-0.8); MONOCYTES % 7.9 % (4.4-11.3); NEUTROPHILS # (AUTO) 12.2 (2.1-6.9); NEUTROPHILS % 81.6 % (38.7-80.0); PLATELET COUNT 309 x10e3/uL (140-360); RED BLOOD COUNT 3.87 x10e6/uL (4.3-5.7); RED CELL DISTRIBUTION WIDTH 14.4 % (11.7-14.4)
[2021-04-13 07:38] LABS: ALBUMIN 2.7 g/dL (3.5-5.0); ALBUMIN/GLOBULIN RATIO 0.6 (0.8-2.0); ANION GAP 15.3 mmol/L (8-16); CALCIUM 8.9 mg/dL (8.4-10.2); CREATININE, SERUM 0.71 mg/dL (0.72-1.25); POTASSIUM 3.3 mmol/L (3.5-5.1)
[2021-04-13] MEDS: ASCORBIC ACID 500 MG TAB PO SCH ×2 (08:29→17:56)
[2021-04-13] MEDS: ZINC SULFATE 220 MG CAP PO SCH (08:29)
[2021-04-13] MEDS: DOCUSATE SODIUM LIQD 100 MG/10 ML UDC NG SCH (08:29)
[2021-04-13] MEDS: ENOXAPARIN INJ 80 MG/0.8 ML SYR SC SCH ×2 (08:32→21:23)
[2021-04-13 11:04] LABS: ABG PCO2 89 mmHg (35-45); ABG PH 7.34 (7.35-7.45); ABG PO2 73 mmHg (80-105)
[2021-04-13 11:05] LABS: ABG HCO3 48 mmol/L (22-26); ABG TCO2 > 50
[2021-04-13] MEDS: FENTANYL 2000MCG/NS 250 250 ML IV SCH ×2 (14:50→18:06)
[2021-04-14] VITALS (27 sets, daily range): BP systolic 90–146; BP diastolic 56–72
[2021-04-14] MEDS: ROCURONIUM 1250MG/NS 250 250 ML IV PRN (00:25)
[2021-04-14] MEDS: NOREPINEPHRINE 8 MG/D5W 250 ML 250 ML IV SCH (01:30)
[2021-04-14] MEDS: MIDAZOLAM HCL 5MG/ML 10ML VIAL 100 ML IV SCH ×4 (04:17→19:17)
[2021-04-14] MEDS: METOCLOPRAMIDE HCL 10 MG/2ML VIAL IV SCH ×3 (05:18→21:27)
[2021-04-14] MEDS: PROPOFOL IV EMULSION 10MG/ML 100 ML IV SCH ×3 (05:19→18:55)
[2021-04-14 06:21] LABS: BASOPHILS % 0.4 % (0.0-1.0); EOSINOPHILS # (AUTO) 0.3 (0.0-0.4); EOSINOPHILS % 2.9 % (0.0-6.0); HEMATOCRIT 35.3 % (38.2-49.6); HEMOGLOBIN 10.7 g/dL (14.0-18.0); LYMPHOCYTES % 9.5 % (18.0-39.1); MEAN CORPUSCULAR HEMOGLOBIN 28.2 pg (28-32); MEAN CORPUSCULAR HGB CONC 30.3 g/dL (31-35); MEAN CORPUSCULAR VOLUME 92.9 fL (81-99); MONOCYTES # (AUTO) 0.8 (0.2-0.8); MONOCYTES % 7.2 % (4.4-11.3); NEUTROPHILS # (AUTO) 8.3 (2.1-6.9); NEUTROPHILS % 78.6 % (38.7-80.0); PLATELET COUNT 267 x10e3/uL (140-360); RED CELL DISTRIBUTION WIDTH 14.1 % (11.7-14.4)
[2021-04-14 07:41] LABS: ALBUMIN 2.6 g/dL (3.5-5.0); ALBUMIN/GLOBULIN RATIO 0.7 (0.8-2.0); ANION GAP 12.6 mmol/L (8-16); CALCIUM 8.7 mg/dL (8.4-10.2); CREATININE, SERUM 0.54 mg/dL (0.72-1.25); POTASSIUM 3.6 mmol/L (3.5-5.1)
[2021-04-14] MEDS: EYE LUBRICANT OPTH OINT 3.5GM TUBE OP SCH ×2 (08:46→21:27)
[2021-04-14] MEDS: ASCORBIC ACID 500 MG TAB PO SCH ×2 (08:46→17:03)
[2021-04-14] MEDS: ZINC SULFATE 220 MG CAP PO SCH (08:46)
[2021-04-14] MEDS: ENOXAPARIN INJ 80 MG/0.8 ML SYR SC SCH ×2 (08:46→21:27)
[2021-04-14] MEDS: DOCUSATE SODIUM LIQD 100 MG/10 ML UDC NG SCH (08:46)
[2021-04-14 08:53] LABS: ABG PH 7.31 (7.35-7.45)
[2021-04-14 08:54] LABS: ABG HCO3 50 mmol/L (22-26); ABG PCO2 102 mmHg (35-45); ABG PO2 77 mmHg (80-105)
[2021-04-14 08:56] LABS: ABG TCO2 > 50
[2021-04-14] MEDS: FENTANYL 2000MCG/NS 250 250 ML IV SCH ×3 (09:00→19:19)
[2021-04-14] MEDS ORDERED: ACETAZOLAMIDE SODIUM 500 MG/VIAL IV ONE (09:45)
[2021-04-14] MEDS: ACETAMINOPHEN 325 MG TAB PO PRN (11:57)
[2021-04-15] VITALS (29 sets, daily range): BP systolic 60–131; BP diastolic 60–106
[2021-04-15] MEDS: ROCURONIUM 1250MG/NS 250 250 ML IV PRN ×2 (00:49→23:32)
[2021-04-15] MEDS: MIDAZOLAM HCL 5MG/ML 10ML VIAL 100 ML IV SCH ×5 (00:51→22:13)
[2021-04-15] MEDS: NOREPINEPHRINE 8 MG/D5W 250 ML 250 ML IV SCH (00:58)
[2021-04-15] MEDS: FENTANYL 2000MCG/NS 250 250 ML IV SCH ×4 (02:00→23:32)
[2021-04-15] MEDS: METOCLOPRAMIDE HCL 10 MG/2ML VIAL IV SCH ×3 (05:19→21:02)
[2021-04-15] MEDS: PROPOFOL IV EMULSION 10MG/ML 100 ML IV SCH ×3 (05:20→23:43)
[2021-04-15 06:14] LABS: BASOPHILS # (AUTO) 0.1 (0.0-0.1); BASOPHILS % 0.5 % (0.0-1.0); EOSINOPHILS # (AUTO) 0.1 (0.0-0.4); EOSINOPHILS % 0.9 % (0.0-6.0); HEMATOCRIT 39.7 % (38.2-49.6); HEMOGLOBIN 11.8 g/dL (14.0-18.0); LYMPHOCYTES % 6.4 % (18.0-39.1); MEAN CORPUSCULAR HEMOGLOBIN 28.6 pg (28-32); MEAN CORPUSCULAR HGB CONC 29.7 g/dL (31-35); MEAN CORPUSCULAR VOLUME 96.4 fL (81-99); MONOCYTES # (AUTO) 0.8 (0.2-0.8); MONOCYTES % 5.3 % (4.4-11.3); NEUTROPHILS % 83.8 % (38.7-80.0); PLATELET COUNT 301 x10e3/uL (140-360); RED BLOOD COUNT 4.12 x10e6/uL (4.3-5.7); RED CELL DISTRIBUTION WIDTH 14.1 % (11.7-14.4)
[2021-04-15 06:39] LABS: ALBUMIN 2.7 g/dL (3.5-5.0); ALBUMIN/GLOBULIN RATIO 0.6 (0.8-2.0); ANION GAP 14.2 mmol/L (8-16); CREATININE, SERUM 0.64 mg/dL (0.72-1.25); POTASSIUM 4.2 mmol/L (3.5-5.1)
[2021-04-15] MEDS: ZINC SULFATE 220 MG CAP PO SCH (08:15)
[2021-04-15] MEDS: ENOXAPARIN INJ 80 MG/0.8 ML SYR SC SCH ×2 (08:15→20:30)
[2021-04-15] MEDS: DOCUSATE SODIUM LIQD 100 MG/10 ML UDC NG SCH (08:15)
[2021-04-15] MEDS: ASCORBIC ACID 500 MG TAB PO SCH ×2 (08:15→17:00)
[2021-04-15] MEDS: EYE LUBRICANT OPTH OINT 3.5GM TUBE OP SCH ×2 (08:15→20:30)
[2021-04-15 09:07] LABS: ABG HCO3 47 mmol/L (22-26); ABG PCO2 111 mmHg (35-45); ABG PH 7.23 (7.35-7.45); ABG PO2 91 mmHg (80-105)
[2021-04-15 09:08] LABS: ABG TCO2 50
[2021-04-15] MEDS ORDERED: FUROSEMIDE INJ 10 MG/ML 4 ML VIAL IV ONE (12:00)
[2021-04-15] MEDS: ACETAMINOPHEN 325 MG TAB PO PRN ×2 (13:55→20:31)
[2021-04-16] VITALS (28 sets, daily range): BP systolic 102–144; BP diastolic 52–73
[2021-04-16] MEDS: NOREPINEPHRINE 8 MG/D5W 250 ML 250 ML IV SCH (01:30)
[2021-04-16] MEDS: MIDAZOLAM HCL 5MG/ML 10ML VIAL 100 ML IV SCH ×4 (03:11→23:10)
[2021-04-16] MEDS: METOCLOPRAMIDE HCL 10 MG/2ML VIAL IV SCH ×3 (05:33→20:55)
[2021-04-16 06:08] LABS: HEMATOCRIT 37.2 % (38.2-49.6); HEMOGLOBIN 11.2 g/dL (14.0-18.0); MEAN CORPUSCULAR HEMOGLOBIN 28.1 pg (28-32); MEAN CORPUSCULAR HGB CONC 30.1 g/dL (31-35); MEAN CORPUSCULAR VOLUME 93.5 fL (81-99); PLATELET COUNT 316 x10e3/uL (140-360); RED BLOOD COUNT 3.98 x10e6/uL (4.3-5.7)
[2021-04-16] MEDS: PROPOFOL IV EMULSION 10MG/ML 100 ML IV SCH (06:27)
[2021-04-16] MEDS: FENTANYL 2000MCG/NS 250 250 ML IV SCH ×3 (06:28→20:56)
[2021-04-16 06:35] LABS: ALBUMIN 2.7 g/dL (3.5-5.0); ALBUMIN/GLOBULIN RATIO 0.6 (0.8-2.0); ANION GAP 11.2 mmol/L (8-16); CALCIUM 8.9 mg/dL (8.4-10.2); CREATININE, SERUM 0.63 mg/dL (0.72-1.25); POTASSIUM 3.2 mmol/L (3.5-5.1)
[2021-04-16] MEDS ORDERED: SODIUM BICARBONATE 8.4% SYRING 100 ML ONE (07:44)
[2021-04-16 08:07] LABS: BAND NEUTROPHILS % (MANUAL) 1 %; EOSINOPHILS % (MANUAL) 10 % (0-7); LYMPHOCYTES % (MANUAL) 8 % (19-48); METAMYELOCYTES % (MANUAL) 1 % (0-0); MONOCYTES % (MANUAL) 5 % (3.4-9.0); MYELOCYTES % (MANUAL) 3 % (0-0); NEUTROPHILS % (MANUAL) 72 % (40-74); PLATELET ESTIMATE ADEQUATE; PLATELET MORPHOLOGY COMMENT NORMAL; RBC MORPHOLOGY COMMENT NORMAL
[2021-04-16] MEDS ORDERED: FUROSEMIDE INJ 10 MG/ML 4 ML VIAL IV ONE (08:30)
[2021-04-16 09:29] LABS: ABG PH 6.96 (7.35-7.45)
[2021-04-16 09:30] LABS: ABG PCO2 > 130 mmHg (35-45); ABG PO2 120 mmHg (80-105)
[2021-04-16 09:31] LABS: ABG PCO2 84 mmHg (35-45); ABG PH 7.34 (7.35-7.45); ABG PO2 60 mmHg (80-105)
[2021-04-16 09:32] LABS: ABG HCO3 46 mmol/L (22-26); ABG TCO2 49
[2021-04-16] MEDS: ASCORBIC ACID 500 MG TAB PO SCH ×2 (11:33→17:55)
[2021-04-16] MEDS: ZINC SULFATE 220 MG CAP PO SCH (11:33)
[2021-04-16] MEDS: EYE LUBRICANT OPTH OINT 3.5GM TUBE OP SCH ×2 (11:33→20:55)
[2021-04-16] MEDS: DOCUSATE SODIUM LIQD 100 MG/10 ML UDC NG SCH (11:33)
[2021-04-16] MEDS: Vancomycin IV 1 GM in SODIUM CHLORIDE 0.9% 250ML 250 ML IV SCH ×2 (11:33→21:44)
[2021-04-16] MEDS: CEFEPIME 1 GM in SODIUM CHLORIDE 0.9% 50ML 50 ML IV SCH ×2 (11:33→20:55)
[2021-04-16] MEDS: ENOXAPARIN INJ 80 MG/0.8 ML SYR SC SCH ×2 (11:33→20:55)
[2021-04-16] MEDS: ACETAMINOPHEN 325 MG TAB PO PRN (11:34)
[2021-04-16] MEDS: ROCURONIUM 1250MG/NS 250 250 ML IV PRN (23:45)
[2021-04-17] VITALS (29 sets, daily range): BP systolic 84–156; BP diastolic 54–94
[2021-04-17] MEDS: PROPOFOL IV EMULSION 10MG/ML 100 ML IV SCH ×3 (00:51→18:43)
[2021-04-17] MEDS: NOREPINEPHRINE 8 MG/D5W 250 ML 250 ML IV SCH (01:30)
[2021-04-17] MEDS: FENTANYL 2000MCG/NS 250 250 ML IV SCH ×3 (04:14→18:41)
[2021-04-17] MEDS: MIDAZOLAM HCL 5MG/ML 10ML VIAL 100 ML IV SCH ×4 (04:15→18:44)
[2021-04-17] MEDS: METOCLOPRAMIDE HCL 10 MG/2ML VIAL IV SCH ×3 (05:48→21:26)
[2021-04-17 06:22] LABS: BASOPHILS # (AUTO) 0.1 (0.0-0.1); BASOPHILS % 0.5 % (0.0-1.0); EOSINOPHILS # (AUTO) 0.9 (0.0-0.4); HEMATOCRIT 32.3 % (38.2-49.6); HEMOGLOBIN 9.7 g/dL (14.0-18.0); LYMPHOCYTES # (AUTO) 1.5 (1.0-3.2); LYMPHOCYTES % 10.1 % (18.0-39.1); MEAN CORPUSCULAR HEMOGLOBIN 27.5 pg (28-32); MEAN CORPUSCULAR VOLUME 91.5 fL (81-99); MONOCYTES % 6.8 % (4.4-11.3); NEUTROPHILS # (AUTO) 11.2 (2.1-6.9); NEUTROPHILS % 74.3 % (38.7-80.0); PLATELET COUNT 289 x10e3/uL (140-360); RED BLOOD COUNT 3.53 x10e6/uL (4.3-5.7); RED CELL DISTRIBUTION WIDTH 14.2 % (11.7-14.4)
[2021-04-17 06:49] LABS: ALBUMIN 2.5 g/dL (3.5-5.0); ALBUMIN/GLOBULIN RATIO 0.6 (0.8-2.0); ANION GAP 11.3 mmol/L (8-16); CALCIUM 8.1 mg/dL (8.4-10.2); CREATININE, SERUM 0.56 mg/dL (0.72-1.25)
[2021-04-17 06:52] LABS: POTASSIUM 2.3 mmol/L (3.5-5.1)
[2021-04-17] MEDS: ASCORBIC ACID 500 MG TAB PO SCH ×2 (08:07→18:38)
[2021-04-17] MEDS: ENOXAPARIN INJ 80 MG/0.8 ML SYR SC SCH ×2 (08:07→20:32)
[2021-04-17] MEDS: DOCUSATE SODIUM LIQD 100 MG/10 ML UDC NG SCH (08:07)
[2021-04-17] MEDS: EYE LUBRICANT OPTH OINT 3.5GM TUBE OP SCH ×2 (08:07→20:32)
[2021-04-17] MEDS: ZINC SULFATE 220 MG CAP PO SCH (08:07)
[2021-04-17] MEDS: CEFEPIME 1 GM in SODIUM CHLORIDE 0.9% 50ML 50 ML IV SCH ×2 (08:07→20:32)
[2021-04-17] MEDS: Vancomycin IV 1 GM in SODIUM CHLORIDE 0.9% 250ML 250 ML IV SCH ×2 (08:08→21:26)
[2021-04-17 09:36] LABS: ABG PH 7.43 (7.35-7.45)
[2021-04-17 09:37] LABS: ABG HCO3 48 mmol/L (22-26); ABG PCO2 72 mmHg (35-45); ABG PO2 76 mmHg (80-105); ABG TCO2 50
[2021-04-17] MEDS ORDERED: POTASSIUM CHLORIDE 20MEQ/100ML 200 ML IV ONE ×4 (10:00→16:00)
[2021-04-17 10:21] LABS: ANION GAP 13.6 mmol/L (8-16); CALCIUM 8.1 mg/dL (8.4-10.2); CREATININE, SERUM 0.56 mg/dL (0.72-1.25)
[2021-04-17 10:23] LABS: POTASSIUM 2.6 mmol/L (3.5-5.1)
[2021-04-17] MEDS ORDERED: SODIUM BICARBONATE 8.4% SYRING 50 ML ONE (15:27)
[2021-04-17] MEDS ORDERED: ALBUMIN 25% 25GM 100ML 0.25 GM/ML BTL IV ONE (15:30)
[2021-04-17] MEDS ORDERED: ALBUMIN 25% 25GM 100ML 100 ML ONE (15:34)
[2021-04-17] MEDS ORDERED: POTASSIUM CHLORIDE 20MEQ/100ML 200 ML ONE (15:35)
[2021-04-17 17:35] LABS: ABG HCO3 49 mmol/L (22-26); ABG PCO2 124 mmHg (35-45); ABG PO2 59 mmHg (80-105); ABG TCO2 50
[2021-04-17] MEDS: ROCURONIUM 1250MG/NS 250 250 ML IV PRN (18:44)
[2021-04-18] VITALS (25 sets, daily range): BP systolic 120–156; BP diastolic 61–80
[2021-04-18] MEDS: MIDAZOLAM HCL 5MG/ML 10ML VIAL 100 ML IV SCH ×6 (01:01→22:17)
[2021-04-18] MEDS: FENTANYL 2000MCG/NS 250 250 ML IV SCH ×4 (01:59→23:55)
[2021-04-18] MEDS: PROPOFOL IV EMULSION 10MG/ML 100 ML IV SCH ×3 (02:11→22:00)
[2021-04-18] MEDS: METOCLOPRAMIDE HCL 10 MG/2ML VIAL IV SCH ×3 (05:37→21:36)
[2021-04-18 06:50] LABS: BASOPHILS # (AUTO) 0.1 (0.0-0.1); BASOPHILS % 0.4 % (0.0-1.0); EOSINOPHILS # (AUTO) 0.6 (0.0-0.4); EOSINOPHILS % 4.6 % (0.0-6.0); HEMATOCRIT 29.2 % (38.2-49.6); HEMOGLOBIN 9.1 g/dL (14.0-18.0); LYMPHOCYTES # (AUTO) 1.2 (1.0-3.2); LYMPHOCYTES % 8.8 % (18.0-39.1); MEAN CORPUSCULAR HEMOGLOBIN 28.4 pg (28-32); MEAN CORPUSCULAR HGB CONC 31.2 g/dL (31-35); MEAN CORPUSCULAR VOLUME 91.3 fL (81-99); MONOCYTES # (AUTO) 1.3 (0.2-0.8); MONOCYTES % 9.2 % (4.4-11.3); NEUTROPHILS # (AUTO) 10.2 (2.1-6.9); NEUTROPHILS % 74.6 % (38.7-80.0); PLATELET COUNT 319 x10e3/uL (140-360); RED CELL DISTRIBUTION WIDTH 14.2 % (11.7-14.4)
[2021-04-18 07:34] LABS: ALBUMIN 2.6 g/dL (3.5-5.0); ALBUMIN/GLOBULIN RATIO 0.7 (0.8-2.0); ANION GAP 13.9 mmol/L (8-16); CALCIUM 8.2 mg/dL (8.4-10.2); CREATININE, SERUM 0.81 mg/dL (0.72-1.25)
[2021-04-18 07:39] LABS: POTASSIUM 2.9 mmol/L (3.5-5.1)
[2021-04-18] MEDS: NOREPINEPHRINE 8 MG/D5W 250 ML 250 ML IV SCH (08:00)
[2021-04-18] MEDS: EYE LUBRICANT OPTH OINT 3.5GM TUBE OP SCH ×2 (09:00→21:00)
[2021-04-18 09:12] LABS: ABG PCO2 69 mmHg (35-45); ABG PH 7.42 (7.35-7.45)
[2021-04-18 09:13] LABS: ABG HCO3 45 mmol/L (22-26); ABG PO2 68 mmHg (80-105); ABG TCO2 47
[2021-04-18] MEDS: DOCUSATE SODIUM LIQD 100 MG/10 ML UDC NG SCH (09:23)
[2021-04-18] MEDS: CEFEPIME 1 GM in SODIUM CHLORIDE 0.9% 50ML 50 ML IV SCH ×2 (09:23→21:00)
[2021-04-18] MEDS: POTASSIUM CHLORIDE 20MEQ/100ML 100 ML IV SCH ×2 (09:23→11:21)
[2021-04-18] MEDS: ASCORBIC ACID 500 MG TAB PO SCH ×2 (09:23→17:01)
[2021-04-18] MEDS: ENOXAPARIN INJ 80 MG/0.8 ML SYR SC SCH ×2 (09:24→21:00)
[2021-04-18] MEDS: ZINC SULFATE 220 MG CAP PO SCH (09:24)
[2021-04-18] MEDS: Vancomycin IV 1 GM in SODIUM CHLORIDE 0.9% 250ML 250 ML IV SCH ×2 (09:24→21:36)
[2021-04-18] MEDS ORDERED: POTASSIUM CHLORIDE 20MEQ/100ML 200 ML IV ONE (10:00)
[2021-04-18 14:26] LABS: ABG PH 7.33 (7.35-7.45)
[2021-04-18 14:27] LABS: ABG HCO3 43 mmol/L (22-26); ABG PCO2 82 mmHg (35-45); ABG PO2 90 mmHg (80-105); ABG TCO2 45
[2021-04-18] MEDS ORDERED: POTASSIUM CHLORIDE 20MEQ/100ML 200 ML IV SCH (16:00)
[2021-04-19] VITALS (26 sets, daily range): BP systolic 92–136; BP diastolic 56–75
[2021-04-19] MEDS: MIDAZOLAM HCL 5MG/ML 10ML VIAL 100 ML IV SCH ×4 (04:30→18:55)
[2021-04-19] MEDS: METOCLOPRAMIDE HCL 10 MG/2ML VIAL IV SCH ×3 (06:00→21:30)
[2021-04-19] MEDS ORDERED: POTASSIUM CHLORIDE 20MEQ/100ML 100 ML IV SCH (06:00)
[2021-04-19 06:18] LABS: BASOPHILS # (AUTO) 0.1 (0.0-0.1); BASOPHILS % 0.4 % (0.0-1.0); EOSINOPHILS # (AUTO) 0.8 (0.0-0.4); EOSINOPHILS % 5.6 % (0.0-6.0); HEMATOCRIT 31.5 % (38.2-49.6); HEMOGLOBIN 9.8 g/dL (14.0-18.0); LYMPHOCYTES # (AUTO) 1.2 (1.0-3.2); LYMPHOCYTES % 7.8 % (18.0-39.1); MEAN CORPUSCULAR HEMOGLOBIN 28.7 pg (28-32); MEAN CORPUSCULAR HGB CONC 31.1 g/dL (31-35); MEAN CORPUSCULAR VOLUME 92.4 fL (81-99); MONOCYTES # (AUTO) 1.3 (0.2-0.8); MONOCYTES % 8.7 % (4.4-11.3); NEUTROPHILS # (AUTO) 11.5 (2.1-6.9); NEUTROPHILS % 75.6 % (38.7-80.0); PLATELET COUNT 371 x10e3/uL (140-360); RED BLOOD COUNT 3.41 x10e6/uL (4.3-5.7); RED CELL DISTRIBUTION WIDTH 14.7 % (11.7-14.4)
[2021-04-19] MEDS: FENTANYL 2000MCG/NS 250 250 ML IV SCH ×4 (06:34→21:33)
[2021-04-19 06:46] LABS: ALBUMIN 2.6 g/dL (3.5-5.0); ALBUMIN/GLOBULIN RATIO 0.7 (0.8-2.0); ANION GAP 12.5 mmol/L (8-16); CALCIUM 8.7 mg/dL (8.4-10.2); POTASSIUM 3.5 mmol/L (3.5-5.1)
[2021-04-19 07:23] LABS: CREATININE, SERUM 0.79 mg/dL (0.72-1.25)
[2021-04-19 08:52] LABS: ABG HCO3 42 mmol/L (22-26); ABG PCO2 83 mmHg (35-45); ABG PH 7.31 (7.35-7.45); ABG PO2 72 mmHg (80-105); ABG TCO2 45
[2021-04-19] MEDS ORDERED: FUROSEMIDE INJ 10 MG/ML 4 ML VIAL IV ONE (09:00)
[2021-04-19] MEDS: DOCUSATE SODIUM LIQD 100 MG/10 ML UDC NG SCH (09:23)
[2021-04-19] MEDS: CEFEPIME 1 GM in SODIUM CHLORIDE 0.9% 50ML 50 ML IV SCH ×2 (09:23→21:26)
[2021-04-19] MEDS: EYE LUBRICANT OPTH OINT 3.5GM TUBE OP SCH ×2 (09:23→21:26)
[2021-04-19] MEDS: ENOXAPARIN INJ 80 MG/0.8 ML SYR SC SCH ×2 (09:24→21:26)
[2021-04-19] MEDS: ASCORBIC ACID 500 MG TAB PO SCH ×2 (09:24→18:55)
[2021-04-19] MEDS: Vancomycin IV 1 GM in SODIUM CHLORIDE 0.9% 250ML 250 ML IV SCH ×2 (09:24→21:30)
[2021-04-19] MEDS: ZINC SULFATE 220 MG CAP PO SCH (09:24)
[2021-04-19] MEDS: PROPOFOL IV EMULSION 10MG/ML 100 ML IV SCH (13:52)
[2021-04-19] MEDS: ROCURONIUM 1250MG/NS 250 250 ML IV PRN (13:53)
[2021-04-19] MEDS ORDERED: POTASSIUM CHLORIDE 20MEQ/100ML 100 ML IV ONE (14:15)
[2021-04-19] MEDS ORDERED: Vancomycin IV 1 GM VIAL ONE (20:55)
[2021-04-20] VITALS (24 sets, daily range): BP systolic 95–128; BP diastolic 22–71
[2021-04-20] MEDS: MIDAZOLAM HCL 5MG/ML 10ML VIAL 100 ML IV SCH ×4 (00:15→15:50)
[2021-04-20] MEDS: PROPOFOL IV EMULSION 10MG/ML 100 ML IV SCH ×3 (00:18→15:49)
[2021-04-20] MEDS: FENTANYL 2000MCG/NS 250 250 ML IV SCH ×3 (04:15→15:49)
[2021-04-20 05:37] LABS: BASOPHILS # (AUTO) 0.1 (0.0-0.1); BASOPHILS % 0.4 % (0.0-1.0); EOSINOPHILS # (AUTO) 1.1 (0.0-0.4); EOSINOPHILS % 8.7 % (0.0-6.0); HEMATOCRIT 30.6 % (38.2-49.6); HEMOGLOBIN 9.3 g/dL (14.0-18.0); LYMPHOCYTES # (AUTO) 1.2 (1.0-3.2); LYMPHOCYTES % 9.6 % (18.0-39.1); MEAN CORPUSCULAR HEMOGLOBIN 28.1 pg (28-32); MEAN CORPUSCULAR HGB CONC 30.4 g/dL (31-35); MEAN CORPUSCULAR VOLUME 92.4 fL (81-99); MONOCYTES # (AUTO) 1.3 (0.2-0.8); MONOCYTES % 10.1 % (4.4-11.3); NEUTROPHILS # (AUTO) 8.7 (2.1-6.9); NEUTROPHILS % 68.7 % (38.7-80.0); PLATELET COUNT 397 x10e3/uL (140-360); RED BLOOD COUNT 3.31 x10e6/uL (4.3-5.7); RED CELL DISTRIBUTION WIDTH 14.7 % (11.7-14.4)
[2021-04-20] MEDS: METOCLOPRAMIDE HCL 10 MG/2ML VIAL IV SCH ×3 (05:42→21:11)
[2021-04-20 06:08] LABS: ALBUMIN 2.5 g/dL (3.5-5.0); ALBUMIN/GLOBULIN RATIO 0.6 (0.8-2.0); ANION GAP 13.7 mmol/L (8-16); CALCIUM 8.8 mg/dL (8.4-10.2); CREATININE, SERUM 0.91 mg/dL (0.72-1.25); POTASSIUM 3.7 mmol/L (3.5-5.1)
[2021-04-20] MEDS ORDERED: Vancomycin IV 1 GM VIAL ONE (07:32)
[2021-04-20] MEDS: DOCUSATE SODIUM LIQD 100 MG/10 ML UDC NG SCH (08:14)
[2021-04-20] MEDS: CEFEPIME 1 GM in SODIUM CHLORIDE 0.9% 50ML 50 ML IV SCH ×2 (08:14→21:10)
[2021-04-20] MEDS: ENOXAPARIN INJ 80 MG/0.8 ML SYR SC SCH ×2 (08:15→21:11)
[2021-04-20] MEDS: ASCORBIC ACID 500 MG TAB PO SCH ×2 (08:15→16:32)
[2021-04-20] MEDS: EYE LUBRICANT OPTH OINT 3.5GM TUBE OP SCH ×2 (08:15→21:10)
[2021-04-20] MEDS: ZINC SULFATE 220 MG CAP PO SCH (08:15)
[2021-04-20] MEDS: Vancomycin IV 1 GM in SODIUM CHLORIDE 0.9% 250ML 250 ML IV SCH ×2 (08:17→21:55)
[2021-04-20 08:43] LABS: ABG HCO3 45 mmol/L (22-26); ABG PCO2 91 mmHg (35-45); ABG PO2 77 mmHg (80-105); ABG TCO2 48
[2021-04-20 08:49] LABS: ABG HCO3 45 mmol/L (22-26); ABG PCO2 91 mmHg (35-45); ABG PO2 77 mmHg (80-105); ABG TCO2 48
[2021-04-20] MEDS: FUROSEMIDE INJ 10 MG/ML 4 ML VIAL IV SCH ×2 (10:29→21:10)
[2021-04-20] MEDS: ROCURONIUM 1250MG/NS 250 250 ML IV PRN ×2 (10:30→15:51)
[2021-04-20] MEDS: ALBUMIN 25% 25GM 100ML 0.25 GM/ML BTL IV SCH ×3 (13:20→21:55)
[2021-04-21] VITALS (23 sets, daily range): BP systolic 102–129; BP diastolic 54–63
[2021-04-21] MEDS: MIDAZOLAM HCL 5MG/ML 10ML VIAL 100 ML IV SCH ×4 (00:15→19:45)
[2021-04-21] MEDS: FENTANYL 2000MCG/NS 250 250 ML IV SCH ×4 (00:36→21:27)
[2021-04-21] MEDS: PROPOFOL IV EMULSION 10MG/ML 100 ML IV SCH ×2 (01:42→09:50)
[2021-04-21 05:51] LABS: BASOPHILS # (AUTO) 0.1 (0.0-0.1); BASOPHILS % 0.4 % (0.0-1.0); EOSINOPHILS % 7.6 % (0.0-6.0); HEMATOCRIT 27.8 % (38.2-49.6); HEMOGLOBIN 8.3 g/dL (14.0-18.0); LYMPHOCYTES # (AUTO) 1.2 (1.0-3.2); LYMPHOCYTES % 9.4 % (18.0-39.1); MEAN CORPUSCULAR HEMOGLOBIN 27.9 pg (28-32); MEAN CORPUSCULAR HGB CONC 29.9 g/dL (31-35); MEAN CORPUSCULAR VOLUME 93.6 fL (81-99); MONOCYTES # (AUTO) 1.3 (0.2-0.8); MONOCYTES % 10.1 % (4.4-11.3); NEUTROPHILS # (AUTO) 9.1 (2.1-6.9); NEUTROPHILS % 69.3 % (38.7-80.0); PLATELET COUNT 461 x10e3/uL (140-360); RED BLOOD COUNT 2.97 x10e6/uL (4.3-5.7); RED CELL DISTRIBUTION WIDTH 14.6 % (11.7-14.4)
[2021-04-21] MEDS: METOCLOPRAMIDE HCL 10 MG/2ML VIAL IV SCH ×3 (06:07→21:39)
[2021-04-21 06:35] LABS: ALBUMIN 3.4 g/dL (3.5-5.0); ALBUMIN/GLOBULIN RATIO 0.9 (0.8-2.0); ANION GAP 17.7 mmol/L (8-16); CALCIUM 8.9 mg/dL (8.4-10.2); CREATININE, SERUM 0.95 mg/dL (0.72-1.25); POTASSIUM 3.7 mmol/L (3.5-5.1)
[2021-04-21] MEDS: DOCUSATE SODIUM LIQD 100 MG/10 ML UDC NG SCH (08:51)
[2021-04-21] MEDS: ASCORBIC ACID 500 MG TAB PO SCH ×2 (08:51→18:22)
[2021-04-21] MEDS: EYE LUBRICANT OPTH OINT 3.5GM TUBE OP SCH ×2 (08:51→21:38)
[2021-04-21] MEDS: ZINC SULFATE 220 MG CAP PO SCH (08:52)
[2021-04-21] MEDS: CEFEPIME 1 GM in SODIUM CHLORIDE 0.9% 50ML 50 ML IV SCH ×2 (09:41→21:38)
[2021-04-21] MEDS: ENOXAPARIN INJ 80 MG/0.8 ML SYR SC SCH ×2 (09:41→21:39)
[2021-04-21] MEDS: Vancomycin IV 1 GM in SODIUM CHLORIDE 0.9% 250ML 250 ML IV SCH ×2 (09:41→21:39)
[2021-04-21 10:14] LABS: ABG PCO2 127 mmHg (35-45)
[2021-04-21 10:15] LABS: ABG HCO3 50 mmol/L (22-26); ABG PO2 74 mmHg (80-105); ABG TCO2 > 50
[2021-04-21] MEDS: ROCURONIUM 1250MG/NS 250 250 ML IV PRN (11:55)
[2021-04-21] MEDS: FUROSEMIDE INJ 10 MG/ML 4 ML VIAL IV SCH ×2 (14:56→21:38)
[2021-04-21 17:36] LABS: ABG HCO3 49 mmol/L (22-26); ABG PCO2 100 mmHg (35-45); ABG PO2 40 mmHg (80-105); ABG TCO2 > 50
[2021-04-21] MEDS: PROPOFOL IV EMULSION 50 ML IV SCH ×2 (18:22→22:11)
[2021-04-22] VITALS (22 sets, daily range): BP systolic 94–145; BP diastolic 57–69
[2021-04-22] MEDS: MIDAZOLAM HCL 5MG/ML 10ML VIAL 100 ML IV SCH ×4 (01:25→21:45)
[2021-04-22] MEDS: PROPOFOL IV EMULSION 50 ML IV SCH ×5 (02:11→21:21)
[2021-04-22] MEDS: FENTANYL 2000MCG/NS 250 250 ML IV SCH ×3 (04:25→18:27)
[2021-04-22 06:46] LABS: HEMATOCRIT 29.2 % (38.2-49.6); HEMOGLOBIN 8.7 g/dL (14.0-18.0); MEAN CORPUSCULAR HEMOGLOBIN 28.2 pg (28-32); MEAN CORPUSCULAR HGB CONC 29.8 g/dL (31-35); MEAN CORPUSCULAR VOLUME 94.8 fL (81-99); PLATELET COUNT 603 x10e3/uL (140-360); RED BLOOD COUNT 3.08 x10e6/uL (4.3-5.7); RED CELL DISTRIBUTION WIDTH 14.6 % (11.7-14.4)
[2021-04-22] MEDS: METOCLOPRAMIDE HCL 10 MG/2ML VIAL IV SCH ×3 (06:58→21:21)
[2021-04-22 07:15] LABS: ALBUMIN 2.8 g/dL (3.5-5.0); ALBUMIN/GLOBULIN RATIO 0.7 (0.8-2.0); ANION GAP 14.7 mmol/L (8-16); CALCIUM 9.2 mg/dL (8.4-10.2); CREATININE, SERUM 0.9 mg/dL (0.72-1.25); POTASSIUM 3.7 mmol/L (3.5-5.1)
[2021-04-22] MEDS: CEFEPIME 1 GM in SODIUM CHLORIDE 0.9% 50ML 50 ML IV SCH (09:00)
[2021-04-22 09:08] LABS: ABG PH 7.31 (7.35-7.45)
[2021-04-22 09:09] LABS: ABG HCO3 50 mmol/L (22-26); ABG PCO2 99 mmHg (35-45); ABG PO2 46 mmHg (80-105); ABG TCO2 > 50
[2021-04-22] MEDS: ASCORBIC ACID 500 MG TAB PO SCH ×2 (09:30→17:21)
[2021-04-22] MEDS: ENOXAPARIN INJ 80 MG/0.8 ML SYR SC SCH ×2 (09:30→20:50)
[2021-04-22] MEDS: DOCUSATE SODIUM LIQD 100 MG/10 ML UDC NG SCH (09:30)
[2021-04-22] MEDS: ZINC SULFATE 220 MG CAP PO SCH (09:30)
[2021-04-22] MEDS: EYE LUBRICANT OPTH OINT 3.5GM TUBE OP SCH ×2 (09:30→20:49)
[2021-04-22] MEDS: Vancomycin IV 1 GM in SODIUM CHLORIDE 0.9% 250ML 250 ML IV SCH ×2 (09:41→22:21)
[2021-04-22 09:46] LABS: EOSINOPHILS % (MANUAL) 2 % (0-7); LYMPHOCYTES % (MANUAL) 8 % (19-48); METAMYELOCYTES % (MANUAL) 2 % (0-0); MONOCYTES % (MANUAL) 9 % (3.4-9.0); MYELOCYTES % (MANUAL) 6 % (0-0); NEUTROPHILS % (MANUAL) 73 % (40-74)
[2021-04-22 09:47] LABS: PLATELET ESTIMATE MODERATELY INCREASED; PLATELET MORPHOLOGY COMMENT NORMAL; RBC MORPHOLOGY COMMENT NORMAL
[2021-04-22] MEDS: FUROSEMIDE INJ 100 MG in SODIUM CHLORIDE 0.9% 100 ML 90 ML IV SCH (12:16)
[2021-04-22] MEDS: ALBUMIN 25% 25GM 100ML 0.25 GM/ML BTL IV SCH ×3 (12:44→21:21)
[2021-04-22 17:05] LABS: ABG HCO3 52 mmol/L (22-26); ABG PCO2 107 mmHg (35-45); ABG PO2 60 mmHg (80-105); ABG TCO2 50
[2021-04-23] VITALS (28 sets, daily range): BP systolic 88–147; BP diastolic 51–68
[2021-04-23] MEDS: PROPOFOL IV EMULSION 50 ML IV SCH ×6 (01:37→21:07)
[2021-04-23] MEDS: FENTANYL 2000MCG/NS 250 250 ML IV SCH ×4 (01:48→17:01)
[2021-04-23] MEDS: MIDAZOLAM HCL 5MG/ML 10ML VIAL 100 ML IV SCH ×5 (03:19→22:13)
[2021-04-23] MEDS: METOCLOPRAMIDE HCL 10 MG/2ML VIAL IV SCH ×3 (05:18→21:06)
[2021-04-23 07:01] LABS: BASOPHILS # (AUTO) 0.1 (0.0-0.1); BASOPHILS % 0.5 % (0.0-1.0); EOSINOPHILS # (AUTO) 0.5 (0.0-0.4); EOSINOPHILS % 2.7 % (0.0-6.0); HEMATOCRIT 26.4 % (38.2-49.6); HEMOGLOBIN 7.9 g/dL (14.0-18.0); LYMPHOCYTES # (AUTO) 1.7 (1.0-3.2); LYMPHOCYTES % 8.3 % (18.0-39.1); MEAN CORPUSCULAR HEMOGLOBIN 28.4 pg (28-32); MEAN CORPUSCULAR HGB CONC 29.9 g/dL (31-35); MONOCYTES # (AUTO) 2.3 (0.2-0.8); MONOCYTES % 11.3 % (4.4-11.3); NEUTROPHILS # (AUTO) 14.6 (2.1-6.9); NEUTROPHILS % 73.4 % (38.7-80.0); PLATELET COUNT 792 x10e3/uL (140-360); RED BLOOD COUNT 2.78 x10e6/uL (4.3-5.7); RED CELL DISTRIBUTION WIDTH 15.1 % (11.7-14.4)
[2021-04-23 07:35] LABS: ALBUMIN 3.5 g/dL (3.5-5.0); ALBUMIN/GLOBULIN RATIO 0.9 (0.8-2.0); ANION GAP 15.7 mmol/L (8-16); CALCIUM 8.9 mg/dL (8.4-10.2); CREATININE, SERUM 0.8 mg/dL (0.72-1.25)
[2021-04-23 07:46] LABS: POTASSIUM 2.7 mmol/L (3.5-5.1)
[2021-04-23] MEDS: ZINC SULFATE 220 MG CAP PO SCH (08:34)
[2021-04-23] MEDS: ENOXAPARIN INJ 80 MG/0.8 ML SYR SC SCH ×2 (08:34→20:08)
[2021-04-23] MEDS: EYE LUBRICANT OPTH OINT 3.5GM TUBE OP SCH ×2 (08:34→20:08)
[2021-04-23] MEDS: ASCORBIC ACID 500 MG TAB PO SCH ×2 (08:34→16:59)
[2021-04-23] MEDS: DOCUSATE SODIUM LIQD 100 MG/10 ML UDC NG SCH (08:34)
[2021-04-23] MEDS: FUROSEMIDE INJ 100 MG in SODIUM CHLORIDE 0.9% 100 ML 90 ML IV SCH (08:35)
[2021-04-23] MEDS: ROCURONIUM 1250MG/NS 250 250 ML IV PRN (08:37)
[2021-04-23] MEDS ORDERED: ACETAZOLAMIDE SODIUM 500 MG/VIAL IV SCH (09:00)
[2021-04-23 09:19] LABS: ABG PCO2 > 130 mmHg (35-45); ABG PO2 90 mmHg (80-105)
[2021-04-23] MEDS ORDERED: POTASSIUM CHLORIDE 20MEQ/100ML 200 ML IV ONE ×2 (12:00→20:00)
[2021-04-23] MEDS: MICAFUNGIN SODIUM 100 MG in MICAFUNGIN SODIUM 100 ML IV SCH (12:21)
[2021-04-23 13:33] LABS: ABG PH 7.33 (7.35-7.45)
[2021-04-23 13:34] LABS: ABG HCO3 48 mmol/L (22-26); ABG PCO2 92 mmHg (35-45); ABG PO2 61 mmHg (80-105); ABG TCO2 > 50
[2021-04-23] MEDS: ACETAMINOPHEN 325 MG TAB PO PRN (20:08)
[2021-04-24] VITALS (29 sets, daily range): BP systolic 72–126; BP diastolic 47–80
[2021-04-24] MEDS: PROPOFOL IV EMULSION 50 ML IV SCH ×6 (00:35→23:31)
[2021-04-24] MEDS: FENTANYL 2000MCG/NS 250 250 ML IV SCH ×4 (01:27→22:09)
[2021-04-24] MEDS: FUROSEMIDE INJ 100 MG in SODIUM CHLORIDE 0.9% 100 ML 90 ML IV SCH ×2 (01:44→17:03)
[2021-04-24] MEDS: MIDAZOLAM HCL 5MG/ML 10ML VIAL 100 ML IV SCH ×4 (04:22→19:40)
[2021-04-24] MEDS: METOCLOPRAMIDE HCL 10 MG/2ML VIAL IV SCH ×3 (05:04→21:02)
[2021-04-24 06:37] LABS: BASOPHILS # (AUTO) 0.2 (0.0-0.1); BASOPHILS % 0.5 % (0.0-1.0); EOSINOPHILS # (AUTO) 0.5 (0.0-0.4); EOSINOPHILS % 1.7 % (0.0-6.0); HEMATOCRIT 27.4 % (38.2-49.6); HEMOGLOBIN 8.2 g/dL (14.0-18.0); LYMPHOCYTES # (AUTO) 1.6 (1.0-3.2); LYMPHOCYTES % 5.5 % (18.0-39.1); MEAN CORPUSCULAR HEMOGLOBIN 28.8 pg (28-32); MEAN CORPUSCULAR HGB CONC 29.9 g/dL (31-35); MEAN CORPUSCULAR VOLUME 96.1 fL (81-99); MONOCYTES # (AUTO) 3.8 (0.2-0.8); MONOCYTES % 12.8 % (4.4-11.3); NEUTROPHILS # (AUTO) 22.4 (2.1-6.9); NEUTROPHILS % 75.5 % (38.7-80.0); PLATELET COUNT 760 x10e3/uL (140-360); RED BLOOD COUNT 2.85 x10e6/uL (4.3-5.7); RED CELL DISTRIBUTION WIDTH 15.4 % (11.7-14.4)
[2021-04-24 07:08] LABS: ALBUMIN 2.8 g/dL (3.5-5.0); ALBUMIN/GLOBULIN RATIO 0.7 (0.8-2.0); ANION GAP 13.3 mmol/L (8-16); CALCIUM 8.4 mg/dL (8.4-10.2); CREATININE, SERUM 0.86 mg/dL (0.72-1.25); POTASSIUM 3.3 mmol/L (3.5-5.1)
[2021-04-24] MEDS: MICAFUNGIN SODIUM 100 MG in MICAFUNGIN SODIUM 100 ML IV SCH (09:01)
[2021-04-24] MEDS: KCL 20 MEQ PACKET/ ORAL SOLN PO SCH (09:01)
[2021-04-24] MEDS: DOCUSATE SODIUM LIQD 100 MG/10 ML UDC NG SCH (09:01)
[2021-04-24] MEDS: EYE LUBRICANT OPTH OINT 3.5GM TUBE OP SCH ×2 (09:01→20:29)
[2021-04-24] MEDS: ENOXAPARIN INJ 80 MG/0.8 ML SYR SC SCH ×2 (09:01→20:29)
[2021-04-24] MEDS: ROCURONIUM 1250MG/NS 250 250 ML IV PRN (09:40)
[2021-04-24 09:54] LABS: ABG PH 7.24 (7.35-7.45)
[2021-04-24 09:55] LABS: ABG HCO3 41 mmol/L (22-26); ABG PCO2 95 mmHg (35-45); ABG PO2 50 mmHg (80-105); ABG TCO2 44
[2021-04-24] MEDS ORDERED: SODIUM CHLORIDE 0.9% 1000ML 1,000 ML ONE (11:47)
[2021-04-24] MEDS: ALBUMIN 25% 12.5GM 0.25 GM/ML BTL IV SCH ×3 (12:37→21:10)
[2021-04-24] MEDS: FLUCONAZOLE 200 MG/100 ML 100 ML IV SCH (12:38)
[2021-04-24] MEDS ORDERED: POTASSIUM CHLORIDE 20MEQ/100ML 100 ML IV ONE (14:00)
[2021-04-24] MEDS: LINEZOLID 600 MG/D5W 300ML 300 ML IV SCH ×2 (15:10→23:14)
[2021-04-24 16:07] LABS: ABG HCO3 45 mmol/L (22-26); ABG PCO2 92 mmHg (35-45); ABG PO2 48 mmHg (80-105); ABG TCO2 48
[2021-04-24] MEDS: NOREPINEPHRINE INJ 4MG/4ML 8 MG in DEXTROSE 5% 250ML 250 ML IV SCH (18:08)
[2021-04-24] MEDS ORDERED: SODIUM BICARBONATE 8.4% INJ 50 ML SYR IV STA (23:04)
[2021-04-24] MEDS ORDERED: SODIUM BICARBONATE 8.4% SYRING 100 ML ONE (23:16)
[2021-04-25] VITALS (30 sets, daily range): BP systolic 56–123; BP diastolic 42–59
[2021-04-25] MEDS: PROPOFOL IV EMULSION 50 ML IV SCH ×4 (00:35→15:19)
[2021-04-25] MEDS: MIDAZOLAM HCL 5MG/ML 10ML VIAL 100 ML IV SCH ×4 (00:36→20:52)
[2021-04-25] MEDS: FUROSEMIDE INJ 100 MG in SODIUM CHLORIDE 0.9% 100 ML 90 ML IV SCH ×2 (02:08→21:33)
[2021-04-25] MEDS ORDERED: DEXTROSE 5% 50ML 50 ML IV ONE (03:21)
[2021-04-25] MEDS: VASOPRESSIN 60 UNIT in DEXTROSE 5% 50ML 57 ML IV PRN ×3 (03:40→20:39)
[2021-04-25] MEDS ORDERED: VASOPRESSIN INJ 20 UNIT/ML VIAL ONE (03:50)
[2021-04-25] MEDS: NOREPINEPHRINE INJ 4MG/4ML 8 MG in DEXTROSE 5% 250ML 250 ML IV SCH ×4 (04:55→15:43)
[2021-04-25] MEDS ORDERED: NOREPINEPHRINE 8 MG/D5W 250 ML 250 ML ONE (04:58)
[2021-04-25] MEDS: METOCLOPRAMIDE HCL 10 MG/2ML VIAL IV SCH ×3 (05:07→21:40)
[2021-04-25] MEDS: FENTANYL 2000MCG/NS 250 250 ML IV SCH ×3 (05:08→15:42)
[2021-04-25 06:21] LABS: BASOPHILS # (AUTO) 0.2 (0.0-0.1); BASOPHILS % 0.6 % (0.0-1.0); EOSINOPHILS # (AUTO) 0.6 (0.0-0.4); EOSINOPHILS % 2.4 % (0.0-6.0); HEMATOCRIT 25.1 % (38.2-49.6); HEMOGLOBIN 7.4 g/dL (14.0-18.0); MEAN CORPUSCULAR HEMOGLOBIN 28.7 pg (28-32); MEAN CORPUSCULAR HGB CONC 29.5 g/dL (31-35); MEAN CORPUSCULAR VOLUME 97.3 fL (81-99); MONOCYTES # (AUTO) 2.8 (0.2-0.8); MONOCYTES % 11.1 % (4.4-11.3); NEUTROPHILS # (AUTO) 18.2 (2.1-6.9); NEUTROPHILS % 72.8 % (38.7-80.0); PLATELET COUNT 880 x10e3/uL (140-360); RED BLOOD COUNT 2.58 x10e6/uL (4.3-5.7)
[2021-04-25 07:03] LABS: ALBUMIN 3.1 g/dL (3.5-5.0); ALBUMIN/GLOBULIN RATIO 0.8 (0.8-2.0); ANION GAP 15.4 mmol/L (8-16); CALCIUM 8.6 mg/dL (8.4-10.2); CREATININE, SERUM 1.12 mg/dL (0.72-1.25); POTASSIUM 3.4 mmol/L (3.5-5.1)
[2021-04-25] MEDS: DOCUSATE SODIUM LIQD 100 MG/10 ML UDC NG SCH (08:29)
[2021-04-25] MEDS: ENOXAPARIN INJ 80 MG/0.8 ML SYR SC SCH ×2 (08:29→21:28)
[2021-04-25] MEDS: EYE LUBRICANT OPTH OINT 3.5GM TUBE OP SCH ×2 (08:29→19:33)
[2021-04-25] MEDS: KCL 20 MEQ PACKET/ ORAL SOLN PO SCH (08:29)
[2021-04-25] MEDS ORDERED: PROPOFOL IV EMULSION 10MG/ML 100 ML ONE (08:40)
[2021-04-25 09:44] LABS: ABG HCO3 46 mmol/L (22-26); ABG PCO2 106 mmHg (35-45); ABG PH 7.25 (7.35-7.45); ABG PO2 42 mmHg (80-105); ABG TCO2 50
[2021-04-25] MEDS: LINEZOLID 600 MG/D5W 300ML 300 ML IV SCH ×2 (11:20→21:40)
[2021-04-25] MEDS: FLUCONAZOLE 200 MG/100 ML 100 ML IV SCH (12:33)
[2021-04-25] MEDS ORDERED: POTASSIUM CHLORIDE 20MEQ/100ML 100 ML IV NR (14:00)
[2021-04-25] MEDS: ROCURONIUM 1250MG/NS 250 250 ML IV PRN (15:44)
[2021-04-26] VITALS (22 sets, daily range): BP systolic 44–104; BP diastolic 20–54
[2021-04-26] MEDS: PROPOFOL IV EMULSION 50 ML IV SCH ×4 (00:27→15:54)
[2021-04-26] MEDS: FENTANYL 2000MCG/NS 250 250 ML IV SCH ×2 (01:42→08:05)
[2021-04-26] MEDS: MIDAZOLAM HCL 5MG/ML 10ML VIAL 100 ML IV SCH ×2 (01:47→06:18)
[2021-04-26] MEDS ORDERED: NOREPINEPHRINE 8 MG/D5W 250 ML 250 ML ONE ×2 (02:12→06:50)
[2021-04-26] MEDS: METOCLOPRAMIDE HCL 10 MG/2ML VIAL IV SCH ×2 (05:07→15:40)
[2021-04-26 06:00] LABS: BASOPHILS # (AUTO) 0.3 (0.0-0.1); BASOPHILS % 0.9 % (0.0-1.0); EOSINOPHILS % 0.1 % (0.0-6.0); HEMOGLOBIN 7.6 g/dL (14.0-18.0); LYMPHOCYTES # (AUTO) 2.6 (1.0-3.2); LYMPHOCYTES % 6.6 % (18.0-39.1); MEAN CORPUSCULAR HGB CONC 29.2 g/dL (31-35); MEAN CORPUSCULAR VOLUME 99.2 fL (81-99); MONOCYTES # (AUTO) 3.3 (0.2-0.8); MONOCYTES % 8.4 % (4.4-11.3); NEUTROPHILS # (AUTO) 26.1 (2.1-6.9); NEUTROPHILS % 67.3 % (38.7-80.0); PLATELET COUNT 763 x10e3/uL (140-360); RED BLOOD COUNT 2.62 x10e6/uL (4.3-5.7); RED CELL DISTRIBUTION WIDTH 16.3 % (11.7-14.4)
[2021-04-26] MEDS: NOREPINEPHRINE INJ 4MG/4ML 8 MG in DEXTROSE 5% 250ML 250 ML IV SCH (07:05)
[2021-04-26 07:39] LABS: BAND NEUTROPHILS % (MANUAL) 1 %; LYMPHOCYTES % (MANUAL) 3 % (19-48); METAMYELOCYTES % (MANUAL) 7 % (0-0); MONOCYTES % (MANUAL) 9 % (3.4-9.0); MYELOCYTES % (MANUAL) 18 % (0-0); NEUTROPHILS % (MANUAL) 61 % (40-74); NUCLEATED RED BLOOD CELLS 21; PROMYELOCYTES % (MANUAL) 1 % (0-0)
[2021-04-26 07:40] LABS: ANISOCYTOSIS SLIGHT; PLATELET ESTIMATE MODERATELY INCREASED; POLYCHROMASIA FEW
[2021-04-26 07:41] LABS: HYPOCHROMASIA SLIGHT; PLATELET MORPHOLOGY COMMENT FEW LARGE; RBC MORPHOLOGY COMMENT ABNORMAL
[2021-04-26] MEDS: FUROSEMIDE INJ 100 MG in SODIUM CHLORIDE 0.9% 100 ML 90 ML IV SCH ×2 (08:24→17:32)
[2021-04-26] MEDS: DOCUSATE SODIUM LIQD 100 MG/10 ML UDC NG SCH (08:27)
[2021-04-26] MEDS: EYE LUBRICANT OPTH OINT 3.5GM TUBE OP SCH (08:27)
[2021-04-26] MEDS: ENOXAPARIN INJ 80 MG/0.8 ML SYR SC SCH (08:27)
[2021-04-26 08:32] LABS: ALBUMIN 2.8 g/dL (3.5-5.0); ALBUMIN/GLOBULIN RATIO 0.7 (0.8-2.0); ANION GAP 26.1 mmol/L (8-16); CALCIUM 8.1 mg/dL (8.4-10.2)
[2021-04-26] MEDS ORDERED: PROPOFOL IV EMULSION 10MG/ML 100 ML ONE (08:35)
[2021-04-26 08:57] LABS: POTASSIUM 7.1 mmol/L (3.5-5.1)
[2021-04-26 08:58] LABS: CREATININE, SERUM 2.2 mg/dL (0.72-1.25)
[2021-04-26] MEDS: KCL 20 MEQ PACKET/ ORAL SOLN PO SCH (09:00)
[2021-04-26] MEDS ORDERED: HEPARIN 25,000 UNIT 1,400 UNIT in DEXTROSE 5% 250ML 250 ML IV SCH ×2 (09:15→14:00)
[2021-04-26] MEDS ORDERED: SOD POLYSTYRENE SULFONATE SUSP 15 GM/60 ML BTL PO ONE (09:15)
[2021-04-26] MEDS ORDERED: SODIUM BICARBONATE 8.4% SYRING 100 ML ONE (09:18)
[2021-04-26] MEDS ORDERED: DEXTROSE 50% SYRINGE 50 ML IV ONE ×2 (09:26→19:09)
[2021-04-26] MEDS ORDERED: INSULIN REGULAR, HUMAN 100 UNIT/1 ML ONE (09:28)
[2021-04-26 09:40] LABS: ABG HCO3 33 mmol/L (22-26); ABG PCO2 111 mmHg (35-45); ABG PH 7.08 (7.35-7.45); ABG PO2 51 mmHg (80-105); ABG TCO2 36
[2021-04-26] MEDS ORDERED: SODIUM BICARBONATE 8.4% 50 ML VIAL IV ONE (09:45)
[2021-04-26] MEDS ORDERED: CALCIUM CHLORIDE 13.6 MEQ in SODIUM CHLORIDE 0.9% 100 ML 100 ML IV ONE (10:00)
[2021-04-26] MEDS ORDERED: SODIUM BICARBONATE 8.4% INJ 50 ML SYR IV ONE (10:27)
[2021-04-26] MEDS ORDERED: MEROPENEM 500 MG in SODIUM CHLORIDE 0.9% 50ML 50 ML IV SCH (10:30)
[2021-04-26 11:33] LABS: BASOPHILS # (AUTO) 0.3 (0.0-0.1); BASOPHILS % 0.7 % (0.0-1.0); HEMATOCRIT 24.7 % (38.2-49.6); HEMOGLOBIN 7.1 g/dL (14.0-18.0); LYMPHOCYTES # (AUTO) 3.1 (1.0-3.2); LYMPHOCYTES % 8.1 % (18.0-39.1); MEAN CORPUSCULAR HEMOGLOBIN 29.3 pg (28-32); MEAN CORPUSCULAR HGB CONC 28.7 g/dL (31-35); MEAN CORPUSCULAR VOLUME 102.1 fL (81-99); MONOCYTES # (AUTO) 3.4 (0.2-0.8); MONOCYTES % 8.7 % (4.4-11.3); NEUTROPHILS % 64.8 % (38.7-80.0); PLATELET COUNT 634 x10e3/uL (140-360); RED BLOOD COUNT 2.42 x10e6/uL (4.3-5.7); RED CELL DISTRIBUTION WIDTH 16.2 % (11.7-14.4)
[2021-04-26 11:52] LABS: INR 1.86; PROTHROMBIN TIME 21.8 seconds (11.9-14.5)
[2021-04-26 11:55] LABS: ANION GAP 26.4 mmol/L (8-16); CALCIUM 8.2 mg/dL (8.4-10.2); CREATININE, SERUM 2.54 mg/dL (0.72-1.25)
[2021-04-26 11:59] LABS: POTASSIUM 6.4 mmol/L (3.5-5.1)
[2021-04-26] MEDS ORDERED: MICAFUNGIN SODIUM 50 ML IV SCH (12:30)
[2021-04-26] MEDS ORDERED: FENTANYL 2000MCG/NS 250 250 ML IV SCH (12:45)
[2021-04-26] MEDS ORDERED: MIDAZOLAM HCL 5MG/ML 10ML VIAL 100 ML IV PRN (12:45)
[2021-04-26 12:58] LABS: BAND NEUTROPHILS % (MANUAL) 1 %; LYMPHOCYTES % (MANUAL) 11 % (19-48); METAMYELOCYTES % (MANUAL) 2 % (0-0); MONOCYTES % (MANUAL) 6 % (3.4-9.0); MYELOCYTES % (MANUAL) 10 % (0-0); NEUTROPHILS % (MANUAL) 67 % (40-74); NUCLEATED RED BLOOD CELLS 26; PROMYELOCYTES % (MANUAL) 3 % (0-0)
[2021-04-26 12:59] LABS: ANISOCYTOSIS SLIGHT; HYPOCHROMASIA SLIGHT; PLATELET ESTIMATE MODERATELY INCREASED; PLATELET MORPHOLOGY COMMENT NORMAL; POLYCHROMASIA FEW; RBC MORPHOLOGY COMMENT ABNORMAL
[2021-04-26] MEDS ORDERED: FENTANYL 2000MCG/NS 250 250 ML IV PRN (13:00)
[2021-04-26] MEDS: LINEZOLID 600 MG/D5W 300ML 300 ML IV SCH (13:11)
[2021-04-26] MEDS ORDERED: DEXTROSE 50% SYRINGE 50 ML IV STA (18:42)
[2021-04-26] MEDS ORDERED: INSULIN REGULAR, HUMAN 100 UNIT/1 ML IV STA (18:42)
[2021-04-26] MEDS ORDERED: SOD POLYSTYRENE SULFONATE SUSP 15 GM/60 ML BTL PO STA (18:42)
[2021-04-27] MEDS ORDERED: MICAFUNGIN SODIUM 50 MG/50 ML BAG IV SCH (09:00)
== END 2021-04-26 23:35 | disposition expired | DRG 870 ==
LOC: ER 22:23 → ERHOLD 03-25 00:32 → ICU 03-31 09:30 → COVIDICU 04-10 22:30
PROVIDERS: ADMIT Internal Medicine; ATTEND Internal Medicine
PROC: 3E0333Z Introduction of Anti-inflammatory into Peripheral Vein, Percutaneous Approach (ICD-10-PCS; 2021-03-24)
PROC: XW033E5 Introduction of Remdesivir Anti-infective into Peripheral Vein, Percutaneous Approach, New Technology Group 5 (ICD-10-PCS; 2021-03-25)
PROC: 02HV33Z Insertion of Infusion Device into Superior Vena Cava, Percutaneous Approach (ICD-10-PCS; 2021-03-27)
PROC: 0BH17EZ Insertion of Endotracheal Airway into Trachea, Via Natural or Artificial Opening (ICD-10-PCS; principal; 2021-03-30)
PROC: 5A1955Z Respiratory Ventilation, Greater than 96 Consecutive Hours (ICD-10-PCS; 2021-03-30)
PROC: 03HC33Z Insertion of Infusion Device into Left Radial Artery, Percutaneous Approach (ICD-10-PCS; 2021-03-31)
PROC: 0B928ZZ Drainage of Carina, Via Natural or Artificial Opening Endoscopic (ICD-10-PCS; 2021-04-16)
PROC: 0B918ZZ Drainage of Trachea, Via Natural or Artificial Opening Endoscopic (ICD-10-PCS; 2021-04-16)
PROC: 3E043XZ Introduction of Vasopressor into Central Vein, Percutaneous Approach (ICD-10-PCS; 2021-04-25)
PROC: 02HV33Z Insertion of Infusion Device into Superior Vena Cava, Percutaneous Approach (ICD-10-PCS; 2021-04-26)
PROC: B548ZZA Ultrasonography of Superior Vena Cava, Guidance (ICD-10-PCS; 2021-04-26)
DX: A41.89 Other specified sepsis (principal); U07.1 COVID-19; I26.99 Other pulmonary embolism without acute cor pulmonale; R65.21 Severe sepsis with septic shock; J12.82 Pneumonia due to coronavirus disease 2019; J69.0 Pneumonitis due to inhalation of food and vomit; J80 Acute respiratory distress syndrome; J15.9 Unspecified bacterial pneumonia; N17.9 Acute kidney failure, unspecified; E87.2 Acidosis; E87.0 Hyperosmolality and hypernatremia; E87.1 Hypo-osmolality and hyponatremia; E66.9 Obesity, unspecified; J45.909 Unspecified asthma, uncomplicated; Z87.891 Personal history of nicotine dependence; E88.09 Other disorders of plasma-protein metabolism, not elsewhere classified; E87.6 Hypokalemia; D64.9 Anemia, unspecified; Z68.38 Body mass index [BMI] 38.0-38.9, adult
CPT/HCPCS: 31500; 36415; 36569; 36600; 51700; 71045; 71260; 74018; 80048; 80053; 80202; 82550; 82553; 82728; 82805; 82948; 83735; 83880; 84484; 85007; 85025; 85027; 85610; 85730; 86140; 87040; 87070; 87071; 87081; 87102; 87186; 87205; 87206; 87335; 93005; 93306; 94002; 94003; 94660; 99285; J0330; J0456; J0692; J0696; J1100; J1644; J1650; J1817; J1885; J1940; J2020; J2185; J2248; J2250; J2543; J2765; J3370; J3480; J7030; J7040; J7050; J7799; P9047; Q9967; U0002